=== PATIENT | male | born 1955 | race Caucasian/White ===

== ENCOUNTER 2021-05-08 10:24 | Outpatient (REF) | payer MEDICARE, SELFPAY ==
[2021-05-08 10:32] LABS: MANUAL DIFF FLAG NO
[2021-05-08 11:06] LABS: Basophils Percent Auto 0.3 % (0-2); Eosinophils Absolute Auto 0.1 X10*3/uL (0.0-0.4); Eosinophils Percent Auto 3.4 % (0-4); Hematocrit 39.2 % (42.0-52.0); Hemoglobin 12.6 g/dl (14.0-18.0); Lymphocytes Absolute Auto 1.2 X10*3/uL (1.2-4.9); Lymphocytes Percent Auto 36.3 % (20-40); Mean Corpuscular HGB Conc 32.1 g/dl (31.0-36.0); Mean Corpuscular Hemoglobin 28.8 pg (27.0-33.0); Mean Corpuscular Volume 89.5 fL (80.0-98.0); Mean Platelet Volume 10.7 fL (9.4-12.4); Monocytes Absolute Auto 0.5 X10*3/uL (0.1-1.2); Monocytes Percent Auto 15.1 % (2-11); Neutrophils Absolute Auto 1.5 x10*3/uL (2.0-8.3); Neutrophils Percent Auto 44.9 % (45-73); Platelet Count 244 X10*3/uL (160-400); Red Blood Count 4.38 X10*6/uL (4.60-5.80); Red Cell Distribution Width 14.1 % (11.0-16.0); White Blood Count 3.3 X10*3/uL (4.8-10.8)
[2021-05-08 11:16] LABS: Appearance Urine CLEAR; Color Urine YELLOW; Glucose Urine UA NEG (NEG); Leukocyte Esterase Urine NEG (NEG); Nitrite Urine NEG (NEG); PH 5.5 (5.0-8.0); Specific Gravity - Urine 1.025 (1.005-1.025); Urine Blood NEG (NEG); Urine Ketones NEG (NEG); Urine Protein NEG (NEG-TRACE)
[2021-05-08 11:35] LABS: Estimated Average Glucose 105 mg/dL; Hemoglobin A1c % 5.3 %
[2021-05-08 12:20] LABS: Alanine Aminotransferase 18 U/L (0-40); Albumin Level 3.8 g/dL (3.5-5.0); Alkaline Phosphatase 60 U/L (39-117); Anion Gap 14 (12-20); Aspartate Amino Transferase 24 U/L (5-37); Bilirubin Total 2.2 mg/dL (0.0-1.0); Blood Urea Nitrogen 21 mg/dL (9-16); Calcium 9.3 mg/dL (8.4-10.2); Carbon Dioxide 28 mmol/L (22-29); Chloride 103 mmol/L (96-108); Cholesterol 178 mg/dL; Estimated Glomerular Filt Rate > 60; Glucose Fasting 91 mg/dL (60-99); HDL Cholesterol 56 mg/dL; LDL Cholesterol Calculated 105 mg/dl; Potassium 3.7 mmol/L (3.3-5.1); Sodium 141 mmol/L (135-145); Total Protein 6.7 g/dL (6.5-8.0); Triglycerides 88 mg/dL
[2021-05-08 12:26] LABS: PSA,Total (Free>4and<10) 3.89 ng/mL (0.00-4.00)
[2021-05-08 12:29] LABS: Creatinine Urine 148.79 mg/dL; Microalbum/Creatinine Ratio Ur 14.1 ug/mg cr
== END 2021-05-08 10:25 | disposition home or self-care (01) ==
LOC: HO.LNP 10:24
PROVIDERS: Referring Provider Internal Medicine; Visit Provider Internal Medicine
DX: Z00.00 Encounter for general adult medical examination without abnormal findings (principal); Z12.5 Encounter for screening for malignant neoplasm of prostate; R73.03 Prediabetes; E80.4 Gilbert syndrome; D72.819 Decreased white blood cell count, unspecified; N40.0 Benign prostatic hyperplasia without lower urinary tract symptoms
CPT/HCPCS: 80053; 80061; 81003; 82043; 83036; 84153; 85025

== ENCOUNTER 2021-05-15 10:33 | Outpatient (REF) | payer MEDICARE, SELFPAY ==
[2021-05-15 10:36] LABS: MANUAL DIFF FLAG NO
[2021-05-15 10:42] LABS: Basophils Percent Auto 0.6 % (0-2); Eosinophils Absolute Auto 0.1 X10*3/uL (0.0-0.4); Eosinophils Percent Auto 2.4 % (0-4); Hematocrit 39.7 % (42.0-52.0); Hemoglobin 12.6 g/dl (14.0-18.0); Imm Gran Abs Auto 0.01 X10*3/uL (0.00-0.03); Imm Gran Pct Auto 0.3 % (0.0-0.4); Lymphocytes Absolute Auto 1.3 X10*3/uL (1.2-4.9); Lymphocytes Percent Auto 37.7 % (20-40); Mean Corpuscular HGB Conc 31.7 g/dl (31.0-36.0); Mean Corpuscular Hemoglobin 28.7 pg (27.0-33.0); Mean Corpuscular Volume 90.4 fL (80.0-98.0); Mean Platelet Volume 10.8 fL (9.4-12.4); Monocytes Absolute Auto 0.5 X10*3/uL (0.1-1.2); Monocytes Percent Auto 14.4 % (2-11); Neutrophils Absolute Auto 1.5 x10*3/uL (2.0-8.3); Neutrophils Percent Auto 44.6 % (45-73); Platelet Count 245 X10*3/uL (160-400); Red Blood Count 4.39 X10*6/uL (4.60-5.80); Red Cell Distribution Width 14.3 % (11.0-16.0); White Blood Count 3.3 X10*3/uL (4.8-10.8)
== END 2021-05-15 10:34 | disposition home or self-care (01) ==
LOC: HO.LNP 10:33
PROVIDERS: PCP Internal Medicine; Visit Provider Internal Medicine
DX: D70.9 Neutropenia, unspecified (principal)
CPT/HCPCS: 85025

== ENCOUNTER 2021-06-12 10:27 | Outpatient (REF) | payer MEDICARE, SELFPAY ==
[2021-06-12 10:30] LABS: MANUAL DIFF FLAG NO
[2021-06-12 10:57] LABS: Basophils Percent Auto 0.3 % (0-2); Eosinophils Absolute Auto 0.1 X10*3/uL (0.0-0.4); Eosinophils Percent Auto 2.8 % (0-4); Hematocrit 39.1 % (42.0-52.0); Hemoglobin 12.6 g/dl (14.0-18.0); Imm Gran Abs Auto 0.01 X10*3/uL (0.00-0.03); Imm Gran Pct Auto 0.3 % (0.0-0.4); Lymphocytes Absolute Auto 1.4 X10*3/uL (1.2-4.9); Lymphocytes Percent Auto 37.7 % (20-40); Mean Corpuscular HGB Conc 32.2 g/dl (31.0-36.0); Mean Corpuscular Volume 90.1 fL (80.0-98.0); Mean Platelet Volume 10.5 fL (9.4-12.4); Monocytes Absolute Auto 0.6 X10*3/uL (0.1-1.2); Neutrophils Absolute Auto 1.5 x10*3/uL (2.0-8.3); Neutrophils Percent Auto 41.9 % (45-73); Platelet Count 237 X10*3/uL (160-400); Red Blood Count 4.34 X10*6/uL (4.60-5.80); Red Cell Distribution Width 14.1 % (11.0-16.0); White Blood Count 3.6 X10*3/uL (4.8-10.8)
== END 2021-06-12 10:28 | disposition home or self-care (01) ==
LOC: HO.LNP 10:27
PROVIDERS: Visit Provider Internal Medicine
DX: D70.9 Neutropenia, unspecified (principal)
CPT/HCPCS: 85025

== ENCOUNTER 2021-11-06 10:41 | Outpatient (REF) | payer MEDICARE, SELFPAY ==
[2021-11-06 12:06] LABS: PSA,Total (Free>4and<10) 3.64 ng/mL (0.00-4.00)
== END 2021-11-06 10:42 | disposition home or self-care (01) ==
LOC: HO.LNP 10:41
PROVIDERS: Visit Provider Internal Medicine
DX: Z12.5 Encounter for screening for malignant neoplasm of prostate (principal); N40.0 Benign prostatic hyperplasia without lower urinary tract symptoms
CPT/HCPCS: 84153

== ENCOUNTER 2022-05-14 10:44 | Outpatient (REF) | payer MEDICARE, SELFPAY ==
[2022-05-14 10:51] LABS: MANUAL DIFF FLAG NO
[2022-05-14 11:10] LABS: Basophils Percent Auto 0.5 % (0-2); Eosinophils Absolute Auto 0.1 X10*3/uL (0.0-0.4); Eosinophils Percent Auto 3.3 % (0-4); Hematocrit 36.4 % (42.0-52.0); Hemoglobin 11.7 g/dl (14.0-18.0); Imm Gran Abs Auto 0.01 X10*3/uL (0.00-0.03); Imm Gran Pct Auto 0.3 % (0.0-0.4); Lymphocytes Absolute Auto 1.7 X10*3/uL (1.2-4.9); Lymphocytes Percent Auto 42.6 % (20-40); Mean Corpuscular HGB Conc 32.1 g/dl (31.0-36.0); Mean Corpuscular Hemoglobin 28.4 pg (27.0-33.0); Mean Corpuscular Volume 88.3 fL (80.0-98.0); Mean Platelet Volume 10.6 fL (9.4-12.4); Monocytes Absolute Auto 0.5 X10*3/uL (0.1-1.2); Monocytes Percent Auto 11.5 % (2-11); Neutrophils Absolute Auto 1.6 x10*3/uL (2.0-8.3); Neutrophils Percent Auto 41.8 % (45-73); Platelet Count 242 X10*3/uL (160-400); Red Blood Count 4.12 X10*6/uL (4.60-5.80); Red Cell Distribution Width 13.9 % (11.0-16.0); White Blood Count 3.9 X10*3/uL (4.8-10.8)
[2022-05-14 11:12] LABS: Appearance Urine Clear; Color Urine Yellow; Glucose Urine UA Negative (Negative); Leukocyte Esterase Urine Negative (Negative); Nitrite Urine Negative (Negative); PH 5.5 (5.0-9.0); Urine Blood Negative (Negative); Urine Ketones Negative (Negative); Urine Protein Negative (Neg-Trace)
[2022-05-14 11:27] LABS: Estimated Average Glucose 114 mg/dL; Hemoglobin A1c % 5.6 %
[2022-05-14 11:57] LABS: Alanine Aminotransferase 18 U/L (0-40); Albumin Level 3.9 g/dL (3.5-5.0); Alkaline Phosphatase 57 U/L (39-117); Anion Gap 13 (12-20); Aspartate Amino Transferase 25 U/L (5-37); Bilirubin Total 2.5 mg/dL (0.0-1.0); Blood Urea Nitrogen 26 mg/dL (9-16); Calcium 9.4 mg/dL (8.4-10.2); Carbon Dioxide 30 mmol/L (22-29); Chloride 103 mmol/L (96-108); Cholesterol 174 mg/dL; Estimated Glomerular Filt Rate > 60; Glucose Fasting 91 mg/dL (60-99); HDL Cholesterol 55 mg/dL; LDL Cholesterol Calculated 108 mg/dl; PSA,Total (Free>4and<10) 4.48 ng/mL (0.00-4.00); Potassium 4.2 mmol/L (3.3-5.1); Sodium 142 mmol/L (135-145); Total Protein 6.6 g/dL (6.5-8.0); Triglycerides 58 mg/dL
[2022-05-14 12:03] LABS: Creatinine Urine 131.65 mg/dL; Microalbum/Creatinine Ratio Ur 12.9 ug/mg cr
[2022-05-16 09:49] LABS: Free Prostate Spec Ag 1.4 ng/mL; Percent Free Prostate Spec Ag 33 % (calc) (>25); Prostate Specific Ag Total 4.3 ng/mL (< OR = 4.0)
== END 2022-05-14 10:45 | disposition home or self-care (01) ==
LOC: HO.LNP 10:44
PROVIDERS: Visit Provider Internal Medicine
DX: Z00.00 Encounter for general adult medical examination without abnormal findings (principal); Z12.5 Encounter for screening for malignant neoplasm of prostate; R73.03 Prediabetes; D72.819 Decreased white blood cell count, unspecified; N40.0 Benign prostatic hyperplasia without lower urinary tract symptoms
CPT/HCPCS: 80053; 80061; 81003; 82043; 83036; 84153; 84154; 85025

== ENCOUNTER 2022-06-14 10:49 | Outpatient (REF) | payer MEDICARE, SELFPAY ==
[2022-06-14 10:52] LABS: MANUAL DIFF FLAG NO
[2022-06-14 11:33] LABS: Blood Urea Nitrogen 25 mg/dL (9-16); Estimated Glomerular Filt Rate > 60
[2022-06-14 14:06] LABS: Basophils Percent Auto 0.7 % (0-2); Eosinophils Absolute Auto 0.1 X10*3/uL (0.0-0.4); Eosinophils Percent Auto 1.4 % (0-4); Hematocrit 36.9 % (42.0-52.0); Hemoglobin 11.8 g/dl (14.0-18.0); Imm Gran Abs Auto 0.03 X10*3/uL (0.00-0.03); Imm Gran Pct Auto 0.7 % (0.0-0.4); Lymphocytes Absolute Auto 1.5 X10*3/uL (1.2-4.9); Lymphocytes Percent Auto 34.8 % (20-40); Mean Corpuscular Hemoglobin 28.8 pg (27.0-33.0); Mean Platelet Volume 10.6 fL (9.4-12.4); Monocytes Absolute Auto 0.5 X10*3/uL (0.1-1.2); Monocytes Percent Auto 11.4 % (2-11); Neutrophils Absolute Auto 2.2 x10*3/uL (2.0-8.3); Platelet Count 244 X10*3/uL (160-400); Red Cell Distribution Width 14.4 % (11.0-16.0); White Blood Count 4.4 X10*3/uL (4.8-10.8)
== END 2022-06-14 10:50 | disposition home or self-care (01) ==
LOC: HO.LNP 10:49
PROVIDERS: Visit Provider Internal Medicine
DX: D72.820 Lymphocytosis (symptomatic) (principal); R79.9 Abnormal finding of blood chemistry, unspecified
CPT/HCPCS: 82565; 84520; 85025

== ENCOUNTER 2022-11-30 10:21 | Outpatient (REF) | payer MEDICARE, SELFPAY ==
[2022-11-30 10:46] LABS: Blood Urea Nitrogen 21 mg/dL (9-16); Estimated Glomerular Filt Rate > 60
== END 2022-11-30 10:22 | disposition home or self-care (01) ==
LOC: HO.LNP 10:21
PROVIDERS: PCP Internal Medicine; Visit Provider Internal Medicine
DX: R79.9 Abnormal finding of blood chemistry, unspecified (principal)
CPT/HCPCS: 82565; 84520

== ENCOUNTER 2023-04-09 09:14 | Emergency (ER) | payer MEDICARE, SELFPAY ==
--- NOTE | ~2023-04-09 | XR_ITS ---
EXAMINATION: XR CHEST CLINICAL INFORMATION: Cough. COMPARISON: None available. TECHNIQUE: 2 views of the chest were obtained. FINDINGS: The lungs are well-expanded and clear of acute process. The heart size and pulmonary vascularity is normal. There is mild dextroscoliosis mid dorsal spine. No aggressive lytic or sclerotic process seen. XR/XR chest 2V IMPRESSION: Unremarkable chest examination.
[2023-04-09 09:38] VITALS: BP 138/83; PULSE 64; RESP 20; TEMP 36.4; O2SAT 97; BMI 24.8
--- NOTE | 2023-04-09 09:46 | ECG_ITS ---
Test Reason : syncope Blood Pressure : / mmHG Vent. Rate : 062 BPM Atrial Rate : 062 BPM P-R Int : 168 ms QRS Dur : 100 ms QT Int : 450 ms P-R-T Axes : 072 064 038 degrees QTc Int : 456 ms Normal sinus rhythm Possible Left atrial enlargement Borderline ECG No previous ECGs available Referred By: Generic ED Physician Electronically Signed By:GREGORY ARRIAZA
--- OUTSIDE RECORDS SUMMARY | 2023-04-09 10:00 | XMS_ITS | Patient Health Record ---
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 Name Role Phone You Kelley Primary Care Provider ALLERGIES Allergen (clinical drug ingredient) Drug/Non Drug Allergy documented on EMR Reaction Allergy Type Onset Date Status tadalafil Cialis bone pain Drug Allergy Active RESULTS Component Value Reference Range Notes Hemoglobin A1c Reviewed date:12/13/2022 09:10:47 AM Interpretation: Performing Lab: Notes/Report: Value Hemoglobin A1c 5.5 PSA Free and Total Reviewed date:05/21/2022 10:15:19 AM Interpretation: Performing Lab:[facility], [address] [place] [phone] Notes/Report: Prostate Specific Ag Total 4.3 < OR = 4.0 ng/ mL Percent Free Prostate Spec Ag 33 >25 % (calc ) PSA(ng/mL) Free PSA(%) Estimated(x) Probability of Cancer(as%) 0-2.5 (*) Approx. 1 2.6-4.0(1) 0-27(2) 24(3) 4.1-10(4) 0-10 56 11-15 28 16-20 20 21-25 16 >or =26 8 >10(+) N/A >50 References:(1)Monica et al.:Urology 60: 469-474 (2002) (2)Monica et al.:J.Urol 168: 922-925 (2001) Free PSA(%) Sensitivity(%) Specificity(%) < or = 25 85 19 < or = 30 93 9 (3)Catalona et al.:GRECIA 277: 9951-7000 (1996) (4)Catalona et al.:GRECIA 279: 1991-1919 (1997) (x)These estimates vary with age, ethnicity, family history and SANDRO results. (*)The diagnostic usefulness of % Free PSA has not been established in patients with total PSA below 2.6 ng/mL (+)In men with PSA above 10 ng/mL, prostate cancer risk is determined by total PSA alone. The Total PSA value from this assay system is standardized against the equimolar PSA standard. The test result will be approximately 20% higher when compared to the WHO-standardized Total PSA (Siemens assay). Comparison of serial PSA results should be interpreted with this fact in mind. PSA was performed using the Gerber Madhu Immunoassay method. Values obtained from different assay methods cannot be used interchangeably. PSA levels, regardless of value, should not be interpreted as absolute evidence of the presence or absence of disease. THIS TEST WAS PERFORMED AT: [facility] [address] ([facility]) [place] [address] LUPILLO RHODES MD Free Prostate Spec Ag 1.4 UA CC w/rflx Micro + Cult Reviewed date:05/14/2022 03:35:10 PM Interpretation: Performing Lab:[address] [phone] Notes/Report: Urine, Clean Catch Color Urine Yellow Appearance Urine Clear PH 5.5 5.0-9.0 Glucose Urine UA Negative Negative mg/dL Urine Blood Negative Negative Specific [place] - Urine 1.020 1.005-1.025 Urine Protein Negative Neg-Trace mg/dL Urine Ketones Negative Negative mg/dL Nitrite Urine Negative Negative Leukocyte Esterase Urine Negative Negative Complete Blood Count Auto Di ff Reviewed date:05/14/2022 12:19:27 PM Interpretation: Performing Lab:[address] [phone] Notes/Report: White Blood Count 3.9 4.8-10.8 X10*3/uL Red Blood Count 4.12 4.60-5.80 X10*6/uL Hemoglobin 11.7 14.0-18.0 g/dl Hematocrit 36.4 42.0-52.0 % Mean Corpuscular Volume 88.3 80.0-98.0 fL Mean Corpuscular Hemoglobin 28.4 27.0-33.0 pg Mean Corpuscular HGB Conc 32.1 31.0-36.0 g/dl Red Cell Distribution Width 13.9 11.0-16.0 % Platelet Count 242 160-400 X10*3/uL Mean Platelet Volume 10.6 9.4-12.4 fL Neutrophils Percent Auto 41.8 45-73 % Imm Gran Pct Auto 0.3 0.0-0.4 % Lymphocytes Percent Auto 42.6 20-40 % Monocytes Percent Auto 11.5 2-11 % Eosinophils Percent Auto 3.3 0-4 % Basophils Percent Auto 0.5 0-2 % NRBC Pct Auto 0.0 0.0-0.2 /100WBC Neutrophils Absolute Auto 1.6 2.0-8.3 x10*3/u L Imm Gran Abs Auto 0.01 0.00-0.03 X10*3/uL Lymphocytes Absolute Auto 1.7 1.2-4.9 X10*3/u L Monocytes Absolute Auto 0.5 0.1-1.2 X10*3/uL Eosinophils Absolute Auto 0.1 0.0-0.4 X10*3/u L Basophils Absolute Auto 0.0 0.0-0.2 X10*3/uL NRBC Abs Auto 0.000 0.0-0.012 X10*3/uL Comprehensive [place]. Panel Fa st Reviewed date:05/14/2022 12:17:30 PM Interpretation: Performing Lab:[facility], [address] [place] [phone] Notes/Report: Sodium 142 135-145 mmol/L Potassium 4.2 3.3-5.1 mmol/L Chloride 103 96-108 mmol/L Carbon Dioxide 30 22-29 mmol/L Anion Gap 13 12-20 Blood Urea Nitrogen 26 9-16 mg/dL Creatinine 1.06 0.5-1.4 mg/dL Estimated Glomerular Filt Rate > 60 NOTE: For -[place] individuals, multiply the result by 1.210. Chronic Kidney Disease: Estimated GFR < 60 mL/min/1.73m2 Severe Kidney Disease: Estimated GFR < 15 mL/min/1.73m2 Glucose Fasting 91 60-99 mg/dL Calcium 9.4 8.4-10.2 mg/dL Bilirubin Total 2.5 0.0-1.0 mg/dL Aspartate Amino Transferase 25 5-37 U/L Alanine Aminotransferase 18 0-40 U/L Total Protein 6.6 6.5-8.0 g/dL Albumin Level 3.9 3.5-5.0 g/dL Alkaline Phosphatase 57 39-117 U/L Lipid Panel Reviewed date:05/14/2022 12:19:52 PM Interpretation: Performing Lab:[address] [phone] Notes/Report: Triglycerides 58 Desirable Triglyceride: less than 150 mg/dL Borderline High Triglyceride 150-199 mg/dL High Triglyceride: 200-499 mg/dL Very High Triglyceride: greater than or equal to 5OO mg/dL Cholesterol 174 Desirable Cholesterol: less than 200 mg/dL Borderline High Cholesterol: 200-239 mg/dL High Cholesterol: greater than 239 mg/dL LDL Cholesterol Calculated 108 Desirable LDL: less than 100 mg/dL Near Optimal/Above Optimal LDL: 110-129 mg/dL Borderline High LDL: 130-159 mg/dL High LDL: 160-189 mg/dL Very High LDL: greater than or equal to 190 mg/dL HDL Cholesterol 55 Desirable HDL: greater than 40 mg/dL Note: This HDL assay may give artificially low results in patients with liver disease. PSA,Total (Free>4and<10) Reviewed date:05/18/2022 12:39:11 PM Interpretation:TAVO 05/18/22 Performing Lab:[address] [phone] Notes/Report: PSA,Total (Free>4and<10) 4.48 0.00-4.00 ng/mL PSA methodology: Singh Chemistry Lecturer Chemiluminescent Microparticle Immunoassay Microalbumin, Random Reviewed date:05/14/2022 12:18:32 PM Interpretation: Performing Lab:[address] [place] [address] Notes/Report: Creatinine Urine 131.65 Microalbumin Urine 17.0 Microalbum/Creatinine Ratio Ur 12.9 Albumin/Creatinine Ratio Reference Ranges: Normal: < 30 ug/mg creatinine Microalbuminuria: 30 - 300 ug/mg creatinine Clinical Albuminuria: > 300 ug/mg creatinine Hemoglobin A1c Reviewed date:05/14/2022 12:17:38 PM Interpretation: Performing Lab:[facility], [address] [place] [phone] Notes/Report: Hemoglobin A1c % 5.6 Hemoglobin A1C Reference Range Adults: 4.8 - 6.0 % Non diabetic: < 6.0 % Goal: < 7.0 % Additional Action Suggested: > 8.0 % Note: Hemoglobin A1c results are invalid for patients with abnormal amounts of HbF. Blood transfusions may impact the HbA1c concentration in the patient sample. Estimated Average Glucose 114 eAG = Estimated average glucose which is %A1C expressed as average glucose, using the formula of the Y7A-Modyfks Average Glucose study (ADAG), Diabetes Care, Vol.31,#8, Nov. 2007 Occult Blood, Stool, Guaiac Reviewed date:05/18/2022 09:43:13 AM Interpretation:Negative Performing Lab: Notes/Report: Negative Occult Blood, Stool, Guaiac Neg Complete Blood Count Auto Di ff Reviewed date:06/15/2022 04:13:35 PM Interpretation: Performing Lab:[facility], [address] [place] [phone] Notes/Report: White Blood Count 4.4 4.8-10.8 X10*3/uL Red Blood Count 4.10 4.60-5.80 X10*6/uL Hemoglobin 11.8 14.0-18.0 g/dl Hematocrit 36.9 42.0-52.0 % Mean Corpuscular Volume 90.0 80.0-98.0 fL Mean Corpuscular Hemoglobin 28.8 27.0-33.0 pg Mean Corpuscular HGB Conc 32.0 31.0-36.0 g/dl Red Cell Distribution Width 14.4 11.0-16.0 % Platelet Count 244 160-400 X10*3/uL Mean Platelet Volume 10.6 9.4-12.4 fL Neutrophils Percent Auto 51.0 45-73 % Imm Gran Pct Auto 0.7 0.0-0.4 % Lymphocytes Percent Auto 34.8 20-40 % Monocytes Percent Auto 11.4 2-11 % Eosinophils Percent Auto 1.4 0-4 % Basophils Percent Auto 0.7 0-2 % NRBC Pct Auto 0.0 0.0-0.2 /100WBC Neutrophils Absolute Auto 2.2 2.0-8.3 x10*3/u L Imm Gran Abs Auto 0.03 0.00-0.03 X10*3/uL Lymphocytes Absolute Auto 1.5 1.2-4.9 X10*3/u L Monocytes Absolute Auto 0.5 0.1-1.2 X10*3/uL Eosinophils Absolute Auto 0.1 0.0-0.4 X10*3/u L Basophils Absolute Auto 0.0 0.0-0.2 X10*3/uL NRBC Abs Auto 0.000 0.0-0.012 X10*3/uL Blood Urea Nitrogen Reviewed date:06/14/2022 12:35:14 PM Interpretation: Performing Lab:[facility], [address] [place] [phone] Notes/Report: Blood Urea Nitrogen 25 9-16 mg/dL Creatinine Reviewed date:06/14/2022 12:34:14 PM Interpretation: Performing Lab:[address] [phone] Notes/Report: Creatinine 0.93 0.5-1.4 mg/dL Estimated Glomerular Filt Rate > 60 NOTE: For -[place] individuals, multiply the result by 1.210. Chronic Kidney Disease: Estimated GFR < 60 mL/min/1.73m2 Severe Kidney Disease: Estimated GFR < 15 mL/min/1.73m2 Blood Urea Nitrogen Reviewed date:11/30/2022 12:19:00 PM Interpretation: Performing Lab:[address] [phone] Notes/Report: Blood Urea Nitrogen 21 9-16 mg/dL Creatinine Reviewed date:11/30/2022 12:18:53 PM Interpretation: Performing Lab:[facility], [address] [place] [phone] Notes/Report: Creatinine 0.97 0.5-1.4 mg/dL Estimated Glomerular Filt Rate > 60 NOTE: For -[place] individuals, multiply the result by 1.210. Chronic Kidney Disease: Estimated GFR < 60 mL/min/1.73m2 Severe Kidney Disease: Estimated GFR < 15 mL/min/1.73m2 Glucose, finger stick Reviewed date:12/13/2022 09:05:21 AM Interpretation: Performing Lab: Notes/Report: Value 120 REASON FOR REFERRAL Reason elevated PSA Diagnosis 1 Elevated PSA (R97.20 ) Referral Organization You Kelley MD Referring Provider First Name You Referring Provider Last Name Warrne Referring Provider Speciality Internal M edicine Referred Provider Ugo Maradiaga Referred Provider Specialty Urology General Notes Nani Love 09:46:50 AM EST > info faxed, Nani Love 05/29/2022 01:29:21 PM EST > info mailed to patient Referral Priority Routine Referral Appointment Date 06/11/2022 MEDICATIONS Medication SIG (Take, Route, Frequency, Duration) Notes Start Date End Date Status Viagra 100 MG 1/2 tablet as needed Orally Once a day for 30 days Active Finasteride 5 MG 1 tablet Orally Once a day Active Tadalafil 20 MG 1/2 to one tablet Orally Once a day for 30 day(s) 02/20/2019 Not-Taking Amoxicillin-Pot Clavulanate 875-125 MG 1 tablet Orally every 12 hrs for 10 days 04/01/2023 Active IMMUNIZATIONS Vaccine Route Administration Date Status Comme nts Flu Vaccine IM Intramuscular 01/30/2011 Administered Flu Vaccine Unknown 04/12/2012 Administered Flu Vaccine IM Intramuscular 04/21/2013 Administered zFluzone Quadrivalent IM Intramuscular 02/24/2015 Administered pt recieved the flu vaccine at [facility] in [place]. Fluarix Quadrivalent IM Intramuscular 01/09/2016 Administe red Fluarix Quadrivalent IM Intramuscular 02/05/2017 Administe red Fluarix Quadrivalent IM Intramuscular 02/15/2020 Administe red PPSV23 (Pnemovax) IM Intramuscular 03/08/2020 Administered SARS-COV-2 Pfizer Unknown 07/21/2020 Administered SARS-COV-2 Pfizer Unknown 08/11/2020 Administered SARS-COV-2 Pfizer Unknown 04/02/2021 Administered Fluarix Quadrivalent Unknown 04/02/2021 Administered PPSV23 (Pnemovax) Unknown 01/10/2016 Refused PPSV23 (Pnemovax) Unknown 02/08/2017 Refused Prevnar 13 Unknown 02/08/2017 Refused Fluarix Quadrivalent Unknown 02/10/2018 Refused Fluarix Quadrivalent Unknown 02/17/2019 Refused SOCIAL HISTORY Tobacco Use: Social History Observation Description Date Details (start date - stop date) Never Smoker NA - NA Sex Assigned At : Social History Observation Description Sex Assigned At Unknown Tobacco Use/Smoking Question Answer Notes Patient is a nonsmoker Additional Findings: Tobacco Non-User Cu rrent non-smoker, currently using no form of tobacco Alcohol Screen Question Answer Notes Did you have a drink contain ing alcohol in the past year? Yes How often did you have a dri nk containing alcohol in the past year? Monthly or less (1 point) How many drinks did you have on a typical day when you were drinking in the past year? 1 or 2 drinks (0 point) How often did you have 6 or more drinks on one occasion in the past year? 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) Active confirmed 39058115 Problem Family history of colon cancer (Z80.0) Active confirmed 199573060 Problem Leukopenia, unspecified type (D72.819) Active confirmed 37207195 VITAL SIGNS Blood pressure diastolic 84 mm Hg 09/03/2022 petra ght is down 3 pounds since 05-18-22 Height 71 in 04/01/2023 weight at home is 178 BP not taken at home no temp Blood pressure systolic 158 mm Hg 09/03/2022 weig ht is down 3 pounds since 05-18-22 Weight 178 lbs 04/01/2023 weight at home is 178 BP not taken at home no temp BMI 24.82 kg/m2 04/01/2023 weight at home is 178 BP not taken at home no temp Encounters Encounter Location Date Provider Diagnosis You Kelley MD [address] [place] [id number] 05/18/2022 You Kelley Elevated PSA R97.20 ; Adult general medical exam Z00.00 ; Elevated BUN R79.9 ; Prostatism N40.0 ; Lymphocytosis D72.820 ; Colon cancer screening Z12.11 ; Depression screen Z13.31 and Prediabetes R73.09 You Kelley MD [address] [place] [id number] 05/14/2022 You Kelley Blood tests for routine general physical examination Z00.00 ; Prediabetes R73.09 ; Leukopenia, unspecified type D72.819 and Prostatism N40.0 You Kelley MD [address] [place] [id number] 06/14/2022 You Kelley Lymphocytosis D72.82 0 and Elevated BUN R79.9 You Kelley MD [address] [place] [id number] 11/30/2022 You Kelley Elevated BUN R79.9 You Kelley MD [address] [place] [id number] 09/03/2022 You Kelley Labile hypertension R09.89 ; Prostatism N40.0 and Elevated BUN R79.9 You Kelley MD [address] [place] [id number] 12/13/2022 You Kelley Prediabetes R73.09 and Prostatism N40.0 You Kelley MD [address] [place] [id number] 11/09/2022 You Kelley MD [address] [place] [id number] 04/01/2023 You Kelley Acute non-recurrent maxillary sinusitis J01.00 You Kelley MD [address] [place] [id number] 01/26/2023 You Kelley ASSESSMENTS Encounter Date Diagnosis Assessment Notes Treatment Notes Treatment Clinical Notes 05/18/2022 Elevated PSA (ICD-10 - R97.20) referral to urology. send the last 3 years of psa's 05/18/2022 Adult general medical exam (ICD-10 - Z00.00) labs reviewed and discussed with patient 05/14/2022 Prediabetes (ICD-10 - R73.09) 05/14/2022 Blood tests for routine general physical examination (ICD-10 - Z00.00) 06/14/2022 Lymphocytosis (ICD-10 - D72.820) 06/14/2022 Elevated BUN (ICD-10 - R79.9) 11/30/2022 Elevated BUN (ICD-10 - R79.9) 09/03/2022 Prostatism (ICD-10 - N40.0) has started finasteride, will continue curent regiment 09/03/2022 Labile hypertension (ICD-10 - R09.89) usually with great readings 12/13/2022 Prostatism (ICD-10 - N40.0) has been on finasteride. some nights has trouble getting / has been off tamzulosin for 3 weeks with no change 12/13/2022 Prediabetes (ICD-10 - R73.09) stable, no need for medication at ths time 04/01/2023 Acute non-recurrent maxillary sinusitis (ICD-10 - J01.00) Patient/Caregiver verbalizes understanding of medications side effects, interactions and warnings. 05/18/2022 Elevated BUN (ICD-10 - R79.9) 05/14/2022 Leukopenia, unspecified type (ICD-10 - D72.819) 09/03/2022 Elevated BUN (ICD-10 - R79.9) pending labs, will continue to monitor 05/18/2022 Prostatism (ICD-10 - N40.0) patient verbalized understanding of change in medication 05/14/2022 Prostatism (ICD-10 - N40.0) 05/18/2022 Lymphocytosis (ICD-10 - D72.820) 05/18/2022 Colon cancer screening (ICD-10 - Z12.11) guaiac negative 05/18/2022 Depression screen (ICD-10 - Z13.31) negative screen 05/18/2022 Prediabetes (ICD-10 - R73.09) stable, no need for medication at this time PLAN OF TREATMENT Pending Test Test Name Order Date Electrocardiogram (EKG) 03/06/2011 Electrocardiogram (EKG) 07/12/2014 Next Appt Details Provider Name:You Zambrano ier, 05/14/2023 07:00:00 AM, [address] [place] [address], [address], [place], [place], [id number], Provider Name:You Zambrano ier, 05/23/2023 09:30:00 AM, [address] [facility], [address], [place], [place], [phone], Insurance Providers Payer Name Payer Address Payer Phone Subscriber Number Group Number Insured Name Patient Relationship to Insured Coverage Start Date Coverage End Date [facility] are [employer] [address] [address] [place] [address] [phone] [id number] Denny Brito Self - patient is the insured MEDICARE [address] [place] [address] [id number] Denny Brito Self - patient is the insured MEDICAL (GENERAL) HISTORY Medical History History ICD Code cat scan colonoscopy 2006 colonoscopy 05/26/12 - repeat in 5 years; colonoscopy done 09/01/[address] Alfaro - repeat 5 years
[2023-04-09 10:10] VITALS: BP 130/73; PULSE 61; RESP 19; TEMP 36.6; O2SAT 98
--- NOTE | 2023-04-09 10:23 | ED.GENADULT ---
HPI - General Adult General Chief complaint: Upper Respiratory Symptoms Stated complaint: Flu Symptoms Time Seen by Provider: 04/09/23 10:08 History of Present Illness HPI narrative: The patient is a 68-year-old male who is generally in good health. Says that for about a month he has had a bad cough. He says that the cough was not initially associated with a fever but was associated with exertional shortness of breath. Eight days ago he had a telehealth visit with his primary care doctor, Dr. Narayan Kelley. He was prescribed Augmentin as a consequence of that telehealth visit. He says that fairly soon after starting the Augmentin he started to have looser stools. Yesterday he had loose stools and he also developed a fever and chills. His highest temperature was something close to 100.5. This morning he started to feel lightheaded while urinating. He went to the kitchen and leaned over the sink thinking he might vomit. He then apparently passed out falling backwards. His says that he fell against the stove. She says that he hit his back and the back of his head against the stove but did not seem to hit very hard. He then was sitting against the stove when he came to fairly quickly. He then went to the bathroom and started vomiting. His apparently called 911 during this time but when paramedics arrived he told them that he was feeling better and agreed to have his drive him to the emergency room. He has no headache. No neck pain. He does not really feel that his cough has gotten significantly better since starting the Augmentin. No abdominal pain. Related Data Previous Rx's Medication Instructions Recorded albuterol sulfate 90 mcg/actuation 2 puff inhalation Q4-6H PRN cough 04/09/23 aerosol inhaler #8.5 grams vancomycin 125 mg capsule 125 mg PO QID 10 days #40 caps 04/09/23 (Vancocin) Allergies Allergy/AdvReac Type Severity Reaction Status Date / Time No Known Allergies Allergy Verified 04/09/23 09:45 Review of Systems Review of Systems: Yes all other systems are reviewed and are negative [facility] Social History Social History Smoked in Last 30 Days: No Use of substances other than those prescribed or required for medical reasons: No Advance Directives: Yes Advance Directives Information Provided: Yes Advance Directives on File: No Physical Exam ED Vital Signs: Vital Signs - 24 hr 04/09/23 09:38 04/09/23 10:10 04/09/23 10:40 Temperature 97.5 F 97.9 F Pulse Rate 64 61 Respiratory Rate 20 19 Blood Pressure 138/83 130/73 Pulse Oximetry 97 98 98 Oxygen Delivery Method Room Air Room Air Room Air 04/09/23 12:16 04/09/23 12:25 Temperature Pulse Rate 85 Respiratory Rate 18 18 Blood Pressure Pulse Oximetry Oxygen Delivery Method BMI result Body Mass Index 24.8 Const Other: The patient looks as though he is ordinarily a vigorous and healthy slim 68-year-old. He looks mildly unwell but not acutely toxic. HENMT Other: Face is symmetrical. Mucous membranes moist. Eyes Other: Pupils are round equal, conjunctivae clear Neck Other: No JVD, no neck swelling Resp Other: Possibly some minimal wheezes. No increased work of breathing. No ambar crackles. Cardio Other: The patient had a regular rate and rhythm no murmur GI Other: Abdomen is soft and nontender Skin Other: The skin is dry and unremarkable Neuro Other: The patient is awake, alert, oriented, appropriate. Nontoxic. Grossly neurologically intact. Extrem Other: No peripheral edema. Medications Administered Discontinued Medications Generic Name Dose Route Start Last Admin Trade Name Freq PRN Reason Stop Dose Admin Albuterol Sulfate 2 puff 04/09/23 12:17 04/09/23 12:19 Albuterol Sulfate 90 Mcg 8 Gm Inhaler INHALE 04/09/23 12:18 2 puff ONCE ONE Administration Albuterol/Ipratropium 3 ml 04/09/23 12:08 04/09/23 12:15 Albuterol/Iprat 2.5/0.5mg 3 Ml Ampul.Neb INHALE 04/09/23 12:09 3 ml ONCE ONE Administration Sodium Chloride 1,000 mls @ 999 mls/hr 04/09/23 10:30 04/09/23 11:49 Ns IV 04/09/23 11:30 Infused .Q1H1M TEVIN Infusion Sodium Chloride 1,000 mls @ 999 mls/hr 04/09/23 11:45 04/09/23 12:54 Ns IV 04/09/23 12:45 Infused .Q1H1M TEVIN Infusion Vancomycin HCl 125 mg 04/09/23 13:28 04/09/23 13:51 Vancomycin Hcl 125 Mg Capsule PO 04/09/23 13:29 125 mg ONCE ONE Administration Medical Decision Making Medical Decision Making [facility] Narrative: Patient is a 68-year-old male who has had problems with a cough for about a month. He a has never been a smoker and has no history of chronic lung disease. Eight days ago he was prescribed Augmentin. His cough has not improved significantly but over the last 24 hours he has developed diarrhea and chills. His chest x-ray is negative. He has a mild white blood count elevation. CRP mildly elevated. Stool is positive for C diff. The patient is started on oral vancomycin for what seems to be a C diff infection. With regard to his cough I do not think there is an indication for another trial of antibiotics, particularly given his current C diff. a he was instructed in the use of an albuterol inhaler. He will use the albuterol inhaler to see if this helps with his coughing. He should take the oral vancomycin at home and stay in touch with regular doctor. He should return if worse. Lab Data 04/09/23 10:29 04/09/23 10:29 Labs: Lab Results 04/09/23 04/09/23 04/09/23 Range/Units 10:14 10:29 11:48 WBC 12.8 H (4.8-10.8) X10*3/uL RBC 4.57 L (4.60-5.80) X10*6/uL Hgb 12.7 L (14.0-18.0) g/dl Hct 38.7 L (42.0-52.0) % MCV 84.7 (80.0-98.0) fL MCH 27.8 (27.0-33.0) pg MCHC 32.8 (31.0-36.0) g/dl RDW 13.5 (11.0-16.0) % Plt Count 265 (160-400) X10*3/uL MPV 9.4 (9.4-12.4) fL Immature Gran % (Auto) 0.4 (0.0-0.4) % Neut % (Auto) 87.2 H (45-73) % Lymph % (Auto) 4.9 L (20-40) % Childress % (Auto) 7.1 (2-11) % Eos % (Auto) 0.2 (0-4) % Baso % (Auto) 0.2 (0-2) % Lymph # (Auto) 0.6 L (1.2-4.9) X10*3/uL Childress # (Auto) 0.9 (0.1-1.2) X10*3/uL Eos # (Auto) 0.0 (0.0-0.4) X10*3/uL Baso # (Auto) 0.0 (0.0-0.2) X10*3/uL Abs Immat Gran (auto) 0.05 H (0.00-0.03) X10*3/uL Absolute Neuts (auto) 11.1 H (2.0-8.3) x10*3/uL Absolute Nucleated RBC 0.000 (0.0-0.012) X10*3/uL Nucleated RBC % (auto) 0.0 (0.0-0.2) /100WBC Sodium 135 (135-145) mmol/L Potassium 4.3 (3.3-5.1) mmol/L Chloride 100 (96-108) mmol/L Carbon Dioxide 26 (22-29) mmol/L Anion Gap 13 (12-20) BUN 19 H (9-16) mg/dL Creatinine 1.03 (0.5-1.4) mg/dL Estim Creat Clear Calc 73.1 Estimated GFR > 60 Random Glucose 106 (60-115) mg/dL Calcium 9.1 (8.4-10.2) mg/dL Magnesium 1.9 (1.6-2.6) mg/dL Total Bilirubin 2.2 H (0.0-1.0) mg/dL Direct Bilirubin 0.5 (0.0-0.5) mg/dL AST 26 (5-37) U/L ALT 18 (0-40) U/L Alkaline Phosphatase 69 (39-117) U/L C-Reactive Protein 4.78 H (< or = 0.50) mg/dL B-Natriuretic Peptide 120 H (<100) pg/mL Total Protein 7.2 (6.5-8.0) g/dL Albumin 3.7 (3.5-5.0) g/dL Urine Color Yellow Urine Appearance Clear Urine pH 6.5 (5.0-9.0) Ur Specific Hardy 1.020 (1.005-1.025) Urine Protein Trace (Neg-Trace) mg/dL Urine Glucose (UA) Negative (Negative) mg/dL Urine Ketones Negative (Negative) mg/dL Urine Blood Negative (Negative) Urine Nitrite Negative (Negative) Ur Leukocyte Esterase Negative (Negative) C. difficile Tox B Gene POSITIVE A* (Negative) C. difficile Toxin A&B Positive A* (Negative) C. difficile Interpret SEE NOTE Influenza Type A (PCR) NEGATIVE (Negative) Influenza Type B (PCR) NEGATIVE (Negative) RSV RNA Qual (PCR) NEGATIVE (Negative) SARS-CoV-2 RNA (RT-PCR) NEGATIVE (Negative) Independent Interpretation I performed an independent interpretation of an: EKG Interpretation: EKG at 10:22 shows normal sinus rhythm at 62 beats per minute. No definite acute ischemic changes. Discharge Plan Discharge Clinical Impression: C. difficile diarrhea, Cough Patient Disposition: Home, Self-Care Instructions: C. Diff (Clostridioides Difficile) Infection (ED) Additional Instructions: Your stool sample tested positive for Clostridium difficile today. This can happen after taking antibiotics. You have been started on a course of an antibiotic which is effective against Clostridium difficile. This antibiotic is vancomycin. Please take this antibiotic 4 times a day (approximately every 6 hours) as prescribed for 10 days. Drink a lot of fluids. With regard to your coughing and respiratory symptoms I would recommend using albuterol 2 puffs every 4-6 hours to see if this is helpful. I would also take a lot of fluids and hot teas and broths. Honey may be helpful also. Please contact your regular doctor for a follow-up appointment in about a week. Return to the emergency was significantly worse. Prescriptions: New vancomycin [Vancocin] 125 mg capsule 125 mg PO QID 10 Days Qty: 40 0RF albuterol sulfate 90 mcg/actuation HFA aerosol inhaler 2 puff inhalation Q4-6H PRN (Reason: cough) Qty: 8.5 0RF Interventions: ED Discharge Assessment Last Done: 04/09/23 14:08 Discharge Date/Time: 04/09/23 14:08
[2023-04-09 10:32] LABS: MANUAL DIFF FLAG NO
[2023-04-09] MEDS: 0.9 % Sodium Chloride 1,000 ML 999 ML IV ×2 (10:32→11:52)
[2023-04-09 10:34] LABS: Basophils Percent Auto 0.2 % (0-2); Eosinophils Percent Auto 0.2 % (0-4); Hematocrit 38.7 % (42.0-52.0); Hemoglobin 12.7 g/dl (14.0-18.0); Imm Gran Abs Auto 0.05 X10*3/uL (0.00-0.03); Imm Gran Pct Auto 0.4 % (0.0-0.4); Lymphocytes Absolute Auto 0.6 X10*3/uL (1.2-4.9); Lymphocytes Percent Auto 4.9 % (20-40); Mean Corpuscular HGB Conc 32.8 g/dl (31.0-36.0); Mean Corpuscular Hemoglobin 27.8 pg (27.0-33.0); Mean Corpuscular Volume 84.7 fL (80.0-98.0); Mean Platelet Volume 9.4 fL (9.4-12.4); Monocytes Absolute Auto 0.9 X10*3/uL (0.1-1.2); Monocytes Percent Auto 7.1 % (2-11); Neutrophils Absolute Auto 11.1 x10*3/uL (2.0-8.3); Neutrophils Percent Auto 87.2 % (45-73); Platelet Count 265 X10*3/uL (160-400); Red Blood Count 4.57 X10*6/uL (4.60-5.80); Red Cell Distribution Width 13.5 % (11.0-16.0); White Blood Count 12.8 X10*3/uL (4.8-10.8)
[2023-04-09 10:40] VITALS: O2SAT 98
[2023-04-09 11:00] LABS: Alanine Aminotransferase 18 U/L (0-40); Albumin Level 3.7 g/dL (3.5-5.0); Alkaline Phosphatase 69 U/L (39-117); Anion Gap 13 (12-20); Aspartate Amino Transferase 26 U/L (5-37); B Type Natriuretic Peptide 120 pg/mL (<100); Bilirubin Direct 0.5 mg/dL (0.0-0.5); Bilirubin Total 2.2 mg/dL (0.0-1.0); Blood Urea Nitrogen 19 mg/dL (9-16); C Reactive Protein 4.78 mg/dL (< or = 0.50); Calcium 9.1 mg/dL (8.4-10.2); Carbon Dioxide 26 mmol/L (22-29); Chloride 100 mmol/L (96-108); Creatinine Clr Calc Pharmacy 73.1; Estimated Glomerular Filt Rate > 60; Glucose Random 106 mg/dL (60-115); Magnesium 1.9 mg/dL (1.6-2.6); Potassium 4.3 mmol/L (3.3-5.1); Sodium 135 mmol/L (135-145); Total Protein 7.2 g/dL (6.5-8.0)
[2023-04-09 11:05] LABS: Influenza A PCR NEGATIVE (Negative); Influenza B PCR NEGATIVE (Negative); Resp Syncy Virus RNA Qual PCR NEGATIVE (Negative); SARS COV2 PCR INHOUSE NEGATIVE (Negative)
[2023-04-09 11:17] VITALS: PULSE 61
[2023-04-09 11:59] LABS: Appearance Urine Clear; Color Urine Yellow; Glucose Urine UA Negative (Negative); Leukocyte Esterase Urine Negative (Negative); Nitrite Urine Negative (Negative); PH 6.5 (5.0-9.0); Urine Blood Negative (Negative); Urine Ketones Negative (Negative); Urine Protein Trace mg/dL (Neg-Trace)
[2023-04-09] MEDS: Albuterol/Iprat 2.5/0.5MG 3 ML AMPUL.NEB INHALE (12:15)
[2023-04-09 12:16] VITALS: PULSE 85; RESP 18; O2SAT 98
[2023-04-09] MEDS: Albuterol Sulfate 90 MCG 8 GM INHALER 2 PUFF INHALE (12:19)
[2023-04-09 12:25] VITALS: RESP 18; O2SAT 98
[2023-04-09 13:02] LABS: CDiff Gene PCR POSITIVE (Negative)
[2023-04-09 13:37] LABS: CDiff Toxin Positive (Negative)
[2023-04-09 13:39] LABS: CDIFF Internal ctrl Dots and bkg OK (V)
[2023-04-09] MEDS: vancomycin HCL 125 MG CAPSULE PO (13:51)
--- NOTE | 2023-04-09 13:52 | PC.NURSE ---
contact precautions in place. PO vanco given.
== END 2023-04-09 14:08 | disposition home or self-care (01) ==
PROVIDERS: Emergency Provider Emergency Medicine; PCP Internal Medicine
DX: A09 Infectious gastroenteritis and colitis, unspecified (principal); R05.9 Cough, unspecified; R06.02 Shortness of breath; R94.31 Abnormal electrocardiogram [ECG] [EKG]; R42 Dizziness and giddiness; R51.9 Headache, unspecified; M54.50 Low back pain, unspecified; Z20.822 Contact with and (suspected) exposure to COVID-19; Z20.828 Contact with and (suspected) exposure to other viral communicable diseases; Z79.899 Other long term (current) drug therapy
CPT/HCPCS: 0241U; 36415; 71046; 80048; 80076; 81003; 83735; 83880; 85025; 86140; 87324; 87493; 93005; 94640; 96360; 96361; 99284; 99285

== ENCOUNTER → 2023-04-09 09:46 | Outpatient (BNV) | payer MEDICARE, SELFPAY | PROVIDERS: Emergency Provider Emergency Medicine; PCP Internal Medicine; Visit Provider Internal Medicine | DX: R55 Syncope and collapse (principal) | CPT/HCPCS: 93010 ==

== ENCOUNTER 2023-05-14 10:57 | Outpatient (REF) | payer MEDICARE, SELFPAY ==
[2023-05-14 11:00] LABS: MANUAL DIFF FLAG NO
[2023-05-14 11:36] LABS: Basophils Percent Auto 0.6 % (0-2); Eosinophils Absolute Auto 0.1 X10*3/uL (0.0-0.4); Eosinophils Percent Auto 3.7 % (0-4); Hematocrit 38.3 % (42.0-52.0); Hemoglobin 12.1 g/dl (14.0-18.0); Imm Gran Abs Auto 0.01 X10*3/uL (0.00-0.03); Imm Gran Pct Auto 0.3 % (0.0-0.4); Lymphocytes Absolute Auto 1.1 X10*3/uL (1.2-4.9); Lymphocytes Percent Auto 32.6 % (20-40); Mean Corpuscular HGB Conc 31.6 g/dl (31.0-36.0); Mean Corpuscular Hemoglobin 27.6 pg (27.0-33.0); Mean Corpuscular Volume 87.4 fL (80.0-98.0); Mean Platelet Volume 10.9 fL (9.4-12.4); Monocytes Absolute Auto 0.4 X10*3/uL (0.1-1.2); Neutrophils Absolute Auto 1.8 x10*3/uL (2.0-8.3); Neutrophils Percent Auto 50.8 % (45-73); Platelet Count 265 X10*3/uL (160-400); Red Blood Count 4.38 X10*6/uL (4.60-5.80); Red Cell Distribution Width 14.7 % (11.0-16.0); White Blood Count 3.5 X10*3/uL (4.8-10.8)
[2023-05-14 11:45] LABS: Appearance Urine Clear; Color Urine Yellow; Glucose Urine UA Negative (Negative); Leukocyte Esterase Urine Negative (Negative); Nitrite Urine Negative (Negative); PH 5.5 (5.0-9.0); Specific Gravity - Urine 1.025 (1.005-1.025); Urine Blood Negative (Negative); Urine Ketones Negative (Negative); Urine Protein Negative (Neg-Trace)
[2023-05-14 11:47] LABS: Estimated Average Glucose 105 mg/dL; Hemoglobin A1c % 5.3 % (<6.0)
[2023-05-14 11:53] LABS: Alanine Aminotransferase 21 U/L (0-40); Albumin Level 3.7 g/dL (3.5-5.0); Alkaline Phosphatase 64 U/L (39-117); Anion Gap 8 (12-20); Aspartate Amino Transferase 27 U/L (5-37); Bilirubin Total 1.6 mg/dL (0.0-1.0); Blood Urea Nitrogen 23 mg/dL (9-16); Carbon Dioxide 30 mmol/L (22-29); Chloride 106 mmol/L (96-108); Cholesterol 165 mg/dL (<200); Estimated Glomerular Filt Rate > 60; Glucose Fasting 92 mg/dL (60-99); HDL Cholesterol 55 mg/dL (>40); LDL Cholesterol Calculated 95 mg/dL (<100); Potassium 4.2 mmol/L (3.3-5.1); Sodium 140 mmol/L (135-145); Total Protein 6.7 g/dL (6.5-8.0); Triglycerides 75 mg/dL (<150)
[2023-05-14 12:05] LABS: Creatinine Urine 149.71 mg/dL
[2023-05-14 12:12] LABS: PSA,Total (Free>4and<10) 2.74 ng/mL (0.00-4.00)
[2023-05-14 12:34] LABS: Bacteria Urine None Seen (None Seen); Hyaline Casts Urine 0-2 /LPF (0-2); RBC Urine 0-2 /HPF (0-2); Squamous Epithelial Cell Urine 0-2 /HPF (0-2); WBC Urine 0-5 /HPF (0-5)
== END 2023-05-14 10:58 | disposition home or self-care (01) ==
LOC: HO.LNP 10:57
PROVIDERS: Visit Provider Internal Medicine
DX: Z00.00 Encounter for general adult medical examination without abnormal findings (principal); R73.03 Prediabetes; D72.819 Decreased white blood cell count, unspecified; N40.0 Benign prostatic hyperplasia without lower urinary tract symptoms; Z12.5 Encounter for screening for malignant neoplasm of prostate
CPT/HCPCS: 80053; 80061; 81001; 82043; 82570; 83036; 84153; 85025

== ENCOUNTER 2023-06-17 13:01 | Outpatient (REF) | payer MEDICARE, SELFPAY ==
--- NOTE | ~2023-06-17 | XR_ITS ---
EXAMINATION: XR CHEST CLINICAL INFORMATION: Bronchitis. COMPARISON: Chest radiograph dated 04/09/2023. TECHNIQUE: 2 views of the chest were obtained. FINDINGS: The trachea remains in normal anatomic position. Heart size remains normal. There is no consolidation within either lung. Pleural spaces are clear. There is no pneumothorax or pleural effusion. No acute osseous abnormality. There is unchanged scoliosis. XR/XR chest 2V IMPRESSION: No acute cardiopulmonary disease.
== END 2023-06-17 13:02 | disposition home or self-care (01) ==
LOC: HO.HMGCX 13:01
PROVIDERS: PCP Internal Medicine; Visit Provider Internal Medicine
DX: J40 Bronchitis, not specified as acute or chronic (principal)
CPT/HCPCS: 71046

== ENCOUNTER 2023-06-17 13:49 | Outpatient (REF) | payer MEDICARE, SELFPAY ==
[2023-06-17 15:31] LABS: Influenza A PCR NEGATIVE (Negative); Influenza B PCR NEGATIVE (Negative); Resp Syncy Virus RNA Qual PCR NEGATIVE (Negative); SARS COV2 PCR INHOUSE NEGATIVE (Negative)
== END 2023-06-17 13:50 | disposition home or self-care (01) ==
LOC: HO.LAB 13:49
PROVIDERS: Visit Provider Internal Medicine
DX: Z86.19 Personal history of other infectious and parasitic diseases (principal); Z11.52 Encounter for screening for COVID-19; Z20.828 Contact with and (suspected) exposure to other viral communicable diseases
CPT/HCPCS: 0241U

== ENCOUNTER 2024-05-18 07:30 | Outpatient (REF) | payer MEDICARE, SELFPAY ==
[2024-05-18 11:20] LABS: MANUAL DIFF FLAG NO
[2024-05-18 11:35] LABS: Basophils Percent Auto 0.3 % (0-2); Eosinophils Absolute Auto 0.2 X10*3/uL (0.0-0.4); Eosinophils Percent Auto 4.1 % (0-4); Hematocrit 37.4 % (42.0-52.0); Hemoglobin 12.3 g/dl (14.0-18.0); Imm Gran Abs Auto 0.01 X10*3/uL (0.00-0.03); Imm Gran Pct Auto 0.3 % (0.0-0.4); Lymphocytes Absolute Auto 1.5 X10*3/uL (1.2-4.9); Lymphocytes Percent Auto 38.3 % (20-40); Mean Corpuscular HGB Conc 32.9 g/dl (31.0-36.0); Mean Corpuscular Hemoglobin 28.8 pg (27.0-33.0); Mean Corpuscular Volume 87.6 fL (80.0-98.0); Monocytes Absolute Auto 0.4 X10*3/uL (0.1-1.2); Monocytes Percent Auto 10.8 % (2-11); Neutrophils Absolute Auto 1.8 x10*3/uL (2.0-8.3); Neutrophils Percent Auto 46.2 % (45-73); Platelet Count 216 X10*3/uL (160-400); Red Blood Count 4.27 X10*6/uL (4.60-5.80); Red Cell Distribution Width 13.9 % (11.0-16.0); White Blood Count 3.9 X10*3/uL (4.8-10.8)
[2024-05-18 11:38] LABS: Appearance Urine Clear; Color Urine Yellow; Glucose Urine UA Negative (Negative); Leukocyte Esterase Urine Negative (Negative); Nitrite Urine Negative (Negative); PH 5.5 (5.0-9.0); Specific Gravity - Urine 1.015 (1.005-1.025); Urine Blood Negative (Negative); Urine Ketones Negative (Negative); Urine Protein Negative (Neg-Trace)
[2024-05-18 12:06] LABS: Estimated Average Glucose 108 mg/dL; Hemoglobin A1c % 5.4 % (<6.0)
[2024-05-18 12:23] LABS: Alanine Aminotransferase 18 U/L (0-40); Albumin Level 3.8 g/dL (3.5-5.0); Alkaline Phosphatase 60 U/L (39-117); Anion Gap 11 (12-20); Aspartate Amino Transferase 37 U/L (5-37); Bilirubin Total 1.6 mg/dL (0.0-1.0); Blood Urea Nitrogen 22 mg/dL (9-16); Calcium 8.8 mg/dL (8.4-10.2); Carbon Dioxide 27 mmol/L (22-29); Chloride 106 mmol/L (96-108); Cholesterol 167 mg/dL (<200); Estimated Glomerular Filt Rate > 60; Glucose Fasting 90 mg/dL (60-99); HDL Cholesterol 51 mg/dL (>40); LDL Cholesterol Calculated 99 mg/dL (<100); Potassium 4.4 mmol/L (3.3-5.1); Sodium 140 mmol/L (135-145); Triglycerides 88 mg/dL (<150)
--- OUTSIDE RECORDS SUMMARY | 2024-05-18 12:34 | XMS_ITS | Clinical Summary ---
Author Organization [facility] Address [address] [place] [address] Care Team Providers Care Vc++ Developer Name Role Phone You Kelley MD Primary Care Provider [phone] Allergies No known active allergies Medications Medication Sig Dispensed Refills Start Date End Date Status tamsulosin (FLOMAX) 0.4 MG CAPS Take 0.4 mg by mouth daily. 0 11/10/2021 Active sildenafil (VIAGRA) 100 MG tablet TAKE ONE-HALF TABLET BY MOUTH ONCE A DAY NEEDED 0 11/15/2021 Active Family History Medical History Relation Name Comments Cancer Father Hypertension Father Cancer Mother Relation Name Status Comments Father Mother Social History Tobacco Use Types Packs/Day Years Used Date Smoking Tobacco: Never Assessed Sex and Gender Information Value Date Recorded Sex Assigned at Not on file Gender Identity Not on file Sexual Orientation Not on file Job Start Date Occupation Industry Not on file Not on file Not on file Last Filed Vital Signs Vital Sign Reading Time Taken Comments Blood Pressure - - Pulse - - Temperature - - Respiratory Rate - - Oxygen Saturation - - Inhaled Oxygen Concentration - - Weight 81.6 kg (180 lb) 01/03/2022 10:55 AM EDT Height 180.3 cm (5' 11 ) 01/03/2022 10:55 AM EDT Body Mass Index 25.1 01/03/2022 10:55 AM EDT Plan of Treatment Health Maintenance Due Date Last Done Comments Hepatitis C Screening 1955 Depression Screening 1967 Preventative Health Evaluation 1973 DTap / Tdap / Td (1 - Tdap) 1974 Colon Cancer Screening (Colonoscopy) 01/22/2000 Shingrix-Zoster Vaccine (1 o f 2) 2005 Fall Risk Assessment 01/22/2020 Pneumococcal Vaccine (2 of 2 - PCV) 03/08/2021 03/08/2020 COVID-19 Vaccine (4 - 2023-2 5 season) 2023 04/02/2021, 08/11/2020, 07/21/2020 Influenza Vaccine (#1) 2023 02/24/2015 RSV Adult > 60+ Yrs or (1 - 1-dose 75+ series) 2030 Hepatitis B Vaccines Aged Out No long er eligible based on patient's age to complete this topic RSV Ped < 20 months Aged Out No longe r eligible based on patient's age to complete this topic Care Teams Vc++ Developer Relationship Specialty Start Date End Date You Kelley MD [address] [place] [address] PCP - General Internal Medicine 01/01/22
[2024-05-18 12:36] LABS: PSA,Total (Free>4and<10) 5.72 ng/mL (0.00-4.00)
[2024-05-18 12:52] LABS: Creatinine Urine 96.45 mg/dL; Microalbum/Creatinine Ratio Ur 13.4 ug/mg cr (<30)
[2024-05-20 12:43] LABS: Free Prostate Spec Ag 1.5 ng/mL; Percent Free Prostate Spec Ag 26 % (calc) (>25); Prostate Specific Ag Total 5.8 ng/mL (< OR = 4.0)
== END 2024-05-18 07:31 | disposition home or self-care (01) ==
LOC: HO.LNP 07:30
PROVIDERS: Visit Provider Internal Medicine
DX: Z00.00 Encounter for general adult medical examination without abnormal findings (principal); R73.03 Prediabetes; D72.819 Decreased white blood cell count, unspecified; N40.0 Benign prostatic hyperplasia without lower urinary tract symptoms; D72.820 Lymphocytosis (symptomatic); Z12.5 Encounter for screening for malignant neoplasm of prostate
CPT/HCPCS: 80053; 80061; 81003; 82043; 82570; 83036; 84153; 84154; 85025

== ENCOUNTER 2024-07-17 08:28 | Day surgery (SDC) | payer MEDICARE, SELFPAY ==
[2024-04-09 13:21] VITALS: BMI 24.3
--- NOTE | 2024-07-16 09:19 | HO.ANESPROP2 ---
HPI - Anesthesia Eval Consult details Narrative: 69yo M for Colonoscopy [facility] Past Medical History Medical History (Updated 04/09/24 @ 13:23 by Ursula Harvey RN) C. difficile enteritis BPH (benign prostatic hyperplasia) Erectile dysfunction Surgical History Surgical History (Updated 04/09/24 @ 13:23 by Ursula Harvey, JOANNE) History of surgery on arm H/O colonoscopy Social History Social History (Updated 04/09/24 @ 13:24 by Ursula Harvey RN) Household Members: Spouse Patient Tobacco Use Status: Never used Tobacco Meds Allergies Allergy/AdvReac Type Severity Reaction Status Date / Time No Known Allergies Allergy Verified 04/09/23 09:45 Home Medications ?Medication ?Instructions ?Recorded ?Confirmed ?Last Taken ?Type sildenafil 25 mg tablet (Viagra) 25 mg PO DAILY PRN Erectile 04/09/24 04/09/24 Unknown History Dysfunction Exam Height,Weight and Vital Signs: Height 6 ft Weight 81.193 kg Assessment and Plan Assessment Anesthesia Assessment: Chart Reviewed
--- NOTE | 2024-07-17 08:49 | P.CONAN_ITS ---
[facility] Past Medical History Medical History C. difficile enteritis BPH (benign prostatic hyperplasia) Erectile dysfunction Functional capacity: independent ambulation Family History Family history of problems with anesthesia: No Surgical History Surgical History History of surgery on arm H/O colonoscopy History of Problems with Anesthesia: No Social History Social History Household Members: Spouse Are you a primary career services coordinator to a significant other at home: No Do you presently have visiting nurse or other home services: No Patient Tobacco Use Status: Former Tobacco user Meds Allergies Allergy/AdvReac Type Severity Reaction Status Date / Time No Known Allergies Allergy Verified 07/17/24 08:56 Active Medications: Current Medications Lactated Ringer's (Lr) 1,000 mls @ 100 mls/hr IVCONT .Q10H TEVIN Sodium Biphosphate/Sodium Phosphate (Sodium Phosphate,Swain-Dibasic 133 Ml Enema) 133 ml [place] ONCE PRN PRN Reason: Poor Colonoscopy Prep Results Home Medications ?Medication ?Instructions ?Recorded ?Confirmed ?Last Taken ?Type sildenafil 25 mg tablet (Viagra) 25 mg PO DAILY PRN Erectile 04/09/24 04/09/24 Unknown History Dysfunction Exam Height,Weight and Vital Signs: Height 6 ft Weight 81.193 kg Airway Mallampati Class: II TM Dist: >3cm Neck ROM: Full Heart: RRR Lungs: CTA Assessment and Plan Assessment Anesthesia Assessment: Anesthesia Plan Discussed and Chart Reviewed Final Anesthetic Review Family History of Problems with Anesthesia: No History of Problems with Anesthesia: No NPO: Yes ASA Class: II Final Preanesthetic Review: Meds/Allgs Chart Reviewed, Consent Obtained/Reviewed and Anes Risks/Benef Reviewed Patient Risk: Low Procedure Risk: Low Anesthetic Plan Anesthetic Plan: MAC: Disposition: Standard PACU
[2024-07-17 08:55] VITALS: BMI 23.5
[2024-07-17] MEDS: Lactated Ringers 1,000 ML 100 ML IVCONT (09:17)
[2024-07-17 09:25] VITALS: BP 123/69; PULSE 53; RESP 18; TEMP 36.7; O2SAT 100
--- NOTE | 2024-07-17 09:46 | P.CONAN_ITS ---
[facility] Past Medical History Medical History C. difficile enteritis BPH (benign prostatic hyperplasia) Erectile dysfunction Functional capacity: independent ambulation Family History Family history of problems with anesthesia: No Surgical History Surgical History History of surgery on arm H/O colonoscopy History of Problems with Anesthesia: No Social History Social History Household Members: Spouse Are you a primary healthcare or medical to a significant other at home: No Do you presently have visiting nurse or other home services: No Patient Tobacco Use Status: Former Tobacco user Substance Use Frequency: Occasionally Have you been hit, kicked, punched, or otherwise hurt by someone within the past year? If so, by whom?: No Are you DNR?: No Advance Directives: No Advance Directives Information Provided: Yes Poor oral hygiene: No Meds Allergies Allergy/AdvReac Type Severity Reaction Status Date / Time No Known Allergies Allergy Verified 07/17/24 08:56 Active Medications: Current Medications Lactated Ringer's (Lr) 1,000 mls @ 100 mls/hr IVCONT .Q10H TEVIN Last Admin: 07/17/24 09:17 Dose: 100 mls/hr Naloxone HCl (Naloxone Hcl 0.4 Mg/Ml Vial) 0.04 mg IVPUSH Q5M PRN PRN Reason: Excessive sedation or RR < 8 Sodium Biphosphate/Sodium Phosphate (Sodium Phosphate,[place]-Dibasic 133 Ml Enema) 133 ml [place] ONCE PRN PRN Reason: Poor Colonoscopy Prep Results Home Medications ?Medication ?Instructions ?Recorded ?Confirmed ?Last Taken ?Type sildenafil 25 mg tablet (Viagra) 25 mg PO DAILY PRN Erectile 04/09/24 04/09/24 Unknown History Dysfunction Exam Height,Weight and Vital Signs: Height 6 ft Weight 78.5 kg Last Vital Signs Temp 98.1 F 07/17/24 09:25 Pulse 53 07/17/24 09:25 Resp 18 07/17/24 09:25 BP 123/69 07/17/24 09:25 Pulse Ox 100 07/17/24 09:25 O2 Del Method Room Air 07/17/24 09:25 Airway Heart: RRR Lungs: CTA Assessment and Plan Assessment Anesthesia Assessment: Anesthesia Plan Discussed Final Anesthetic Review Family History of Problems with Anesthesia: No History of Problems with Anesthesia: No NPO: Yes Final Preanesthetic Review: Meds/Allgs Chart Reviewed, Consent Obtained/Reviewed and Anes Risks/Benef Reviewed Patient Risk: Low Procedure Risk: Low Anesthetic Plan Anesthetic Plan: MAC: Disposition: Standard PACU
[2024-07-17 10:45] VITALS: BP 123/75; PULSE 45; RESP 16; TEMP 36.1; O2SAT 99
--- NOTE | 2024-07-17 10:45 | PM.OP ---
Brief Operative Note Date of Service: 07/17/24 Pre-op diagnosis: Screening Post-op diagnosis: other (Polyp) Procedure: Colonoscopy to the cecum and TI with bx/removal of polyp Surgeon: Andrez Alfaro MD Anesthesia: MAC Was an Spray Rig Operator used for this Procedure?: No Estimated blood loss (mL): 2.0 Pathology: other (A. Rectal polyp) Condition: stable Disposition: PACU
[2024-07-17 11:00] VITALS: BP 128/77; PULSE 42; RESP 16; TEMP 36.1; O2SAT 99
--- NOTE | 2024-07-17 11:20 | HO.POSTANES ---
Post Anesthesia Evaluation Post Anesthesia Evaluation Date of Service: 07/17/24 Vital Signs: Vital Signs Temp Pulse Resp BP Pulse Ox O2 Del Method 07/17/24 11:00 97 F 42 L 16 128/77 99 Room Air 07/17/24 10:45 97 F 45 L 16 123/75 99 Room Air 07/17/24 09:25 98.1 F 53 18 123/69 100 Room Air Anesthesia: Monitored Mental Status: Awake Pain Control: Satisfactory Nausea/Vomiting: None Hydration: Adequate Anesthesia-Related Issues: No Anes. Related Issues
--- NOTE | 2024-07-17 11:29 | OP_ITS ---
DATE OF SERVICE: 07/17/2024 SURGEON: Andrez Alfaro MD INDICATIONS: The patient presents for evaluation of colorectal cancer screening and family history of colon cancer. Full consent was obtained from him for this, including risks of bleeding and perforation. PREOPERATIVE DIAGNOSIS: Colorectal cancer screening and family history of colon cancer. POSTOPERATIVE DIAGNOSIS: PROCEDURE PERFORMED: ESTIMATED BLOOD LOSS: COMPLICATIONS: ANESTHESIA: Medication used, monitored anesthesia care. ASSISTANTS: SPECIMENS: POSTOPERATIVE DIAGNOSES: 1. Colorectal cancer screening and family history of colon cancer. 2. Small colon polyp. 3. Sigmoid diverticulosis. 4. Internal hemorrhoids. PROCEDURES PERFORMED: Colonoscopy to the cecum and terminal ileum with biopsy removal of the polyp. DESCRIPTION OF PROCEDURE: The patient was placed in left lateral decubitus position. The digital rectal exam revealed no abnormalities. The Olympus video pediatric colonoscope was entered into the rectum and advanced to the cecum. Advancement to the cecum was difficult as usual in his case. Abdominal pressure was applied basically from the very beginning of the case until we were able to enter the cecum. However, once in the cecum, I did identify normal-appearing cecal pouch with appendiceal orifice and a normal-appearing ileocecal valve. There was transillumination of light deep in the right lower quadrant. The terminal ileum was cannulated and appeared normal. The scope was withdrawn back in the colon. The scope was then slowly withdrawn assessing all mucosal surfaces carefully. Preparation was excellent. The only polyp I visualized was an approximately 4 mm polyp in the rectum, which was biopsied and completely removed with the cold biopsy forceps. I did not visualize any other polyps, colitis, nor angiodysplasia. There was a mild amount of sigmoid diverticulosis. In the rectum, scope was retroflexed visualizing small internal hemorrhoids, but no other pathology. The rectal mucosa appeared normal. The scope was straightened and withdrawn from the patient. He tolerated the procedure well and was returned to the recovery area in stable condition. IMPRESSION: 1. Small colon polyp. 2. Mild sigmoid diverticulosis. 3. Small internal hemorrhoids. PLAN: The results of the biopsy will be checked. I would recommend a repeat colonoscopy in 5 years for further surveillance. He will otherwise see me on a p.r.n. basis. Andrez Alfaro MD RMOmar/MAHOGANYL / [phone]
== END 2024-07-17 11:30 | disposition home or self-care (01) ==
PROVIDERS: PCP Internal Medicine; Visit Provider Internal Medicine
PROC: 0DJD8ZZ Inspection of Lower Intestinal Tract, Via Natural or Artificial Opening Endoscopic (ICD-10-PCS; CPT 45378; principal; 2024-07-17 09:30)
DX: Z12.11 Encounter for screening for malignant neoplasm of colon (principal); Z80.0 Family history of malignant neoplasm of digestive organs; K62.1 Rectal polyp; K57.30 Diverticulosis of large intestine without perforation or abscess without bleeding; K64.8 Other hemorrhoids; N40.0 Benign prostatic hyperplasia without lower urinary tract symptoms; N52.9 Male erectile dysfunction, unspecified; Z86.19 Personal history of other infectious and parasitic diseases; Z79.899 Other long term (current) drug therapy
CPT/HCPCS: 45380; 88305; J2003; J2704

== ENCOUNTER 2024-10-30 09:38 | Outpatient (AMB) | payer MEDICARE, SELFPAY ==
--- OUTSIDE RECORDS SUMMARY | 2024-07-16 12:15 | XMS_ITS ---
Author Organization You Kelley MD Address [address] [place] [phone] Care Team Providers Care Litharge Mill Operator Name Role Phone You Kelley Primary Care Provider REASON FOR VISIT pre-op Dr. James 08-19-2023 right eye cataract no EKG or labs needed Encounters Encounter Location Date Provider Diagnosis You Kelley MD [address] [place] [phone] 07/16/2024 You Kelley Plan Of Treatment Next Appt Details Provider Name:You green, 05/20/2025 07:45:00 AM, [address] [place] [address], [address] [place] [address], [phone], Provider Name:You green, 05/27/2025 11:00:00 AM, [address] [place] [address], Suite [facility], [place], [place], [phone], Progress Notes * Denny BRITO ADOB:1955 (69 yo M)Acc No.[id number]:07/16/2024 Patient: Denny LISA Provider: Zarina Kelley MD :1955 A ge:69 Y S ex:Male Date:07/16/2024 Address:[address] [place], [place] [phone] Subjective: * Chief Complaints: * 1 . [...] 07/16/2024 Generated for Rosie aldridge/Imani/Anthonyitting on: 0 10/30/2024 09:45 AM EDT
[2024-10-30 09:41] VITALS: BP 128/77; PULSE 43; BMI 23.6
--- NOTE | 2024-10-30 09:41 | MHC.OFFVIS ---
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 Kelley/Sinus bradycardia Intake Note: New patient Dr Kellye dx sinsus jermain HR was in 30 during cataract procedure they need ok to do the other eye c/o dizziness at times Construction Estimator Required: No Allergies No Known Allergies Allergy (Verified 07/17/24 08:56) Medication List - Last Reconciled 10/30/24 by Chester Hoffman MD moxifloxacin 0.5% 1 drp ophthalmic-Right QID sildenafil (Viagra) 25 mg PO DAILY PRN HPI Comments Details: Thank you for referring Denny in cardiology consultation today for sinus bradycardia as well as lightheadedness. He is a pleasant 69-year-old male without any clear prior cardiovascular history or cardiovascular risk factors. He is generally in very good shape and says when he is in [place] he is usually biking every where and biking up and down hills. He recently underwent cataract surgery. Post surgery while he was laying down in bed he was feeling lightheaded. After some period of time he felt better and then he was got up and he was walking he suddenly felt like he was lightheaded he was noted to be pale at that time by the staff and was laid down and was noted to have heart rate in the 30s. Do not have any EKGs around that. He is now scheduled to undergo repeat surgery in other eye for cataract and that was concerned about his bradycardia and was asked to see hospice administrator. He said he intermittently gets these symptoms of lightheadedness when he is undergoing eye procedure. He has never had a syncopal episode. He denies any palpitations. Denies any exercise intolerance. No shortness of breath, orthopnea, PND. [facility] Medical History C. difficile enteritis BPH (benign prostatic hyperplasia) Erectile dysfunction Surgical History History of surgery on arm H/O colonoscopy Social History Household Members: Spouse Are you a primary hospice patient care secretary to a significant other at home: No Do you presently have visiting nurse or other home services: No Patient Tobacco Use Status: Former Tobacco user Review of Systems Const Denies chills, Denies daytime sleepiness, Denies fatigue, Denies fever(s), Denies frequent falls, Denies poor appetite, Denies snoring, Denies stops breathing during sleep, Denies weakness, Denies weight gain and Denies weight loss Eyes Denies loss of vision ENT Reports dizziness and Denies hearing loss Card Denies chest pain, Denies claudication, Denies leg edema, Denies lightheadedness, Denies palpitations, Denies dyspnea, Denies dyspnea on exertion and Denies orthopnea Resp Denies cough, Denies excessive phlegm production, Denies dyspnea, Denies dyspnea on exertion, Denies snoring and Denies wheezing GI Denies abdominal pain, Denies hematochezia, Denies change in bowel habits, Denies nausea and Denies vomiting Denies dysuria and Denies urinary frequency Musc Denies arthralgias, Denies muscle weakness, Denies numbness and Denies other (frequent falls) Skin/Breast Denies nail changes and Denies rash Neuro Denies Abnormal speech present, Reports dizziness, Denies frequent falls, Denies loss of vision, Denies memory loss, Denies numbness and Denies weakness Psych Denies depression and Denies memory loss Endo Denies fatigue and Denies palpitations Charlie/Lymph Reports easy bruising and Reports other (anemia) Aller/Immun Denies wheezing Physical Exam Vital Signs: Last Vital Signs Pulse 69 10/30/24 09:59 BP 115/81 10/30/24 09:59 BMI result Body Mass Index 23.6 Const General: cooperative, comfortable, no acute distress, well developed, alert, awake and Physically active Nutritional Appearance: average body habitus and well nourished Orientation/consciousness: patient oriented x3 Limitations: no limitations HEENT Head: Yes normocephalic and Yes atraumatic Neck Neck: Yes trachea midline, Yes supple and Yes no JVD Resp Effort & Inspection: normal respiratory effort Auscultation: clear to auscultation bilaterally Cardio Jugular venous distension: no JVD Palpation: normal PMI Rate: bradycardic Rhythm: regular rhythm Heart sounds: S1 normal heart sound present, S2 normal heart sound present, no click, no gallops, no murmurs and no rubs GI Auscultation: normal bowel sounds Skin General skin exam: no rashes or lesions noted Neuro General: patient oriented x3 and no focal motor deficits Speech: No Abnormal speech present Extrem General: Yes no clubbing, cyanosis or edema Psych Appearance: grossly normal Office Procedures EKG Details: EKG shows sinus bradycardia at 48 beats per minute with rightward axis otherwise normal EKG 11951-Byhqzamhlljdlafus, Complete Assessment & Plan Assessment & Plan (1) Near syncope: Code(s): R55 - Syncope and collapse Category: Medical Plan: Patient with near-syncope postoperatively and symptoms highly suggestive of vasovagal syncope which can give significant sinus bradycardia. Discussed with the patient about mechanism he is well aware of it. He has never had prior diagnose of it. I would suggest a head-up tilt-table test to evaluate for hemodynamic response to head-up tilt to guide further therapy. If he has significant cardio inhibitory response is the only scenario he may benefit from pacemaker. This was discussed with him. He also has baseline sinus bradycardia at rest which is most likely related to his excellent aerobic cardiac capacity. I do not think this is pathologic sinus bradycardia. At this point time I would suggest to further delineate to a treadmill stress test to evaluate for chronotropic competence and a 3 day Holter monitor to rule out any significant pauses. This was discussed with him. He is agreeable to pursue this test although with reluctance. If these tests are within normal limits, I would suggest that he is optimized to undergo cataract surgery with very low risk. Will follow up in the clinic if need be. Thank you for allowing me to partake in his care Orders: Orders ECG Tilt Table Test Today R55 - Syncope and collapse CA stress test Today R00.1 - Bradycardia, unspecified ECG 3 day holter monitor Today R00.1 - Bradycardia, unspecified Coding Level of Care Code New Pt Level 4 (38551) Complex EM visit Add On G2211 Diagnoses Near syncope R55 CPT Codes EKG - CPT: 93249-Tgezmhazdmetbrusw, Complete ([id number])
--- OUTSIDE RECORDS SUMMARY | 2024-10-30 09:45 | XMS_ITS | Clinical Summary ---
Author Organization [facility] Address [address] [place] [address] Care Team Providers Care Hse Advisor Name Role Phone You Kelley MD Primary Care Provider [phone] Allergies No known active allergies Medications Medication [...] 2023 04/02/2021, 08/11/2020, 07/21/2020 Influenza Vaccine (#1) 2024 02/24/2015 RSV Adult > 60+ Yrs or (1 - 1-dose 75+ series) 2030 Hepatitis B Vaccines Aged Out No long er eligible based on patient's age to complete this topic RSV Ped < 20 months Aged Out No longe r eligible based on patient's age to complete this topic Care Teams Hse Advisor Relationship Specialty Start Date End Date You Kelley MD [address] [place] [address] PCP - General Internal Medicine 01/01/22
--- OUTSIDE RECORDS SUMMARY | 2024-10-30 09:45 | XMS_ITS | Patient Health Record ---
Author Organization [facility] Address [address] [place] [address] Care Team Providers Care Photographic Process Attendant Name Role Phone You Kelley MD Primary Care Provider Andrez Barba [phone] Allergies No Known Allergies Results Component Value Reference Range Notes Pathology (Not yet reviewed by provider) Interpretation: Performing Lab:[facility], [address] [place] [phone] Notes/Report: Reason For Referral No Information Medications Medication SIG (Take, Route, Frequency, Duration) Notes Start Date End Date Status Viagra 25 MG 1 tablet as needed Orally prn Active Immunizations Vaccine Route Administration Date Status Comme nts Influenza Unknown 05/29/2018 Refused Influenza Unknown 12/26/2023 Refused Problems Problem Type SNOMED Code ICD Code Onset Dates Problem Status W/U Status Risk Notes Problem 571889245 Encounter for screening for malignant neoplasm of colon (Z12.11) Active confirmed Problem 269915144 Abdominal bloating (R14.0) Active confirmed Problem Pre-procedure evaluation check (133030732) Encounter for other preprocedural examination (Z01.818) Active confirmed Problem 217082762 Family history o f colon cancer (Z80.0) Active confirmed Vital Signs Temperature 97.1 degrees Fahrenheit 12/26/2023 Blood pressure diastolic 00 mm Hg 12/26/2023 Height 72 in 12/26/2023 Blood pressure systolic 000 mm Hg 12/26/2023 Weight 179 lbs 12/26/2023 BMI 24.27 kg/m2 12/26/2023 Encounters Encounter Location Date Provider Diagnosis [facility] [place] Outpatient [address] [place] [id number] 07/17/2024 Andrez Alfaro Colon cancer screeni ng Z12.11 ; Family history of colon cancer Z80.0 ; Colon polyps K63.5 ; Diverticulosis of large intestine without perforation or abscess without bleeding K57.30 and Other hemorrhoids K64.8 [facility] [address] [place] [address] 12/26/2023 Andrez Alfaro Encounter for screen ing for malignant neoplasm of colon Z12.11 ; Encounter for other preprocedural examination Z01.818 and Family history of colon cancer Z80.0 [facility] [address] [place] [address] 04/13/2024 Andrez Alfaro Assessments Encounter Date Diagnosis (ICD Code) Assessment Notes Treatment Notes Treatment Clinical Notes Section Notes 07/17/2024 Colon cancer screening (ICD-10 - Z12.11) 07/17/2024 Family history of colon cancer (ICD-10 - Z80.0) 12/26/2023 Encounter for screening for malignant neoplasm of colon (ICD-10 - Z12.11) Overall, Denny appears quite well. I did recommend a followup screening colonoscopy given his family history and his last exam being over 5 years ago. We did review the rationale for that regard to colon cancer prevention. Full consent was obtained for this, including risks of bleeding and perforation. The procedure will be done with monitored anesthesia care. Denny was comfortable with this plan. Thank you again for allowing me to participate in Denny's care. I shall continue to keep you advised of his progress. 12/26/2023 Encounter for other preprocedural examination (ICD-10 - Z01.818) Overall, Denny appears quite well. I did recommend a followup screening colonoscopy given his family history and his last exam being over 5 years ago. We did review the rationale for that regard to colon cancer prevention. Full consent was obtained for this, including risks of bleeding and perforation. The procedure will be done with monitored anesthesia care. Denny was comfortable with this plan. Thank you again for allowing me to participate in Denny's care. I shall continue to keep you advised of his progress. 07/17/2024 Colon polyps (ICD-10 - K63.5) 12/26/2023 Family history of colon cancer (ICD-10 - Z80.0) Overall, Denny appears quite well. I did recommend a followup screening colonoscopy given his family history and his last exam being over 5 years ago. We did review the rationale for that regard to colon cancer prevention. Full consent was obtained for this, including risks of bleeding and perforation. The procedure will be done with monitored anesthesia care. Denny was comfortable with this plan. Thank you again for allowing me to participate in Denny's care. I shall continue to keep you advised of his progress. 07/17/2024 Diverticulosis of large intestine without perforation or abscess without bleeding (ICD-10 - K57.30) 07/17/2024 Other hemorrhoids (ICD-10 - K64.8) Plan Of Treatment Pending Test Test Name Order Date Pathology 07/17/2024 Future Test Test Name Order Date COLONOSCOPY 04/16/2012 COLONOSCOPY 05/29/2018 COLONOSCOPY 12/26/2023 Insurance Providers Payer Name Payer Address Payer Phone Subscriber Number Group Number Insured Name Patient Relationship to Insured Coverage Start Date Coverage End Date [facility] [address] [address] [place] [address] [id number] DENNY BECKER Self - patient is the insured Medical (General) History Medical History History ICD Code Negative colonoscopies in , 2000, and 2006(had a neg. virtual colonography in 2006 due to an incomplete exam), negative colonoscopy in 05/2012 Denies SD,DM,CVA,Lung disease,renal dise ase Colonoscopy 08/2018 with only a hyperplas tic polyp C.diff 03/2023 from Augmentin----treated with Vancomycin BPH-sees Dr. Maradiaga Surgical History Surgery Date(Month/Year) Ruptured Biceps tendon surgery
--- OUTSIDE RECORDS SUMMARY | 2024-10-30 09:45 | XMS_ITS | Clinical Summary ---
Author Organization [facility] Address [address] [place] [address] Care Team Providers Care Sheep Farm Worker Name Role Phone You Kelley MD Primary Care Provider Allergies No known active allergies Medications No known medications Immunizations Immunization Administration Dates Next Due Tdap Vaccine =>7YO IM 12/09/2012 Social History Tobacco Use Types Packs/Day Years Used Date Smoking Tobacco: Never Assessed Sex and Gender Information Value Date Recorded Sex Assigned at Not on file Legal Sex Male 18:37 EDT Gender Identity Not on file Sexual Orientation Not on file Last Filed Vital Signs Vital Sign Reading Time Taken Comments Blood Pressure 116/82 12/09/2012 1843 EDT Pulse - - Temperature 36.6 C (97.9 F) 12/09/2012 1843 EDT Respiratory Rate 14 12/09/2012 1843 EDT Oxygen Saturation 98% 12/09/2012 1843 EDT Inhaled Oxygen Concentration - - Weight - - Height - - Body Mass Index - - Plan of Treatment Health Maintenance Due Date Last Done Comments Hepatitis C Screen 1955 Fall Risk Screening 01/22/2020 COVID-19 Vaccine (2023- season) 2023 RSV Immunization ( o r 60+ Years) (1 - 1-dose 75+ series) 2030 Care Teams Sheep Farm Worker Relationship Specialty Start Date End Date You Kelley MD [address] [place] [address] [address], [place]VA [address] PCP - General 12/12/12
[2024-10-30 09:57] VITALS: BP 114/76; PULSE 53
[2024-10-30 09:59] VITALS: BP 115/81; PULSE 69
== END 2024-10-30 10:30 | disposition home or self-care (01) ==
LOC: HO.HCS 09:39
PROVIDERS: PCP Internal Medicine; Visit Provider Internal Medicine Cardiovascular Disease
DX: R55 Syncope and collapse (principal)
CPT/HCPCS: 93010; 99204; G2211

== ENCOUNTER → 2024-10-30 09:38 | Outpatient (BNVA) | payer MEDICARE, SELFPAY | PROVIDERS: PCP Internal Medicine; Visit Provider Internal Medicine Cardiovascular Disease | DX: R55 Syncope and collapse (principal); R00.1 Bradycardia, unspecified | CPT/HCPCS: 93005; 99202 ==

== ENCOUNTER → 2024-12-07 08:25 | Outpatient (REF) | payer MEDICARE, SELFPAY ==
--- OUTSIDE RECORDS SUMMARY | 2024-07-16 12:15 | XMS_ITS ---
Author Organization You Kelley MD Address [address] [place] [phone] Care Team Providers Care Salt Manager Name Role Phone You Kelley Primary Care Provider REASON FOR VISIT pre-op Dr. James 08-19-2023 right eye cataract no EKG or labs needed Encounters Encounter Location Date Provider Diagnosis You Kelley MD [address] [place] [phone] 07/16/2024 You Kelley Plan Of Treatment Next Appt Details Provider Name:You green, 05/20/2025 07:45:00 AM, [address] [place] [address], [address] [place] [address], [phone], Provider Name:You green, 05/27/2025 11:00:00 AM, [address] [place] [address], Suite [facility], [place], [place], [phone], Progress Notes * Denny BRITO ADOB:1955 (69 yo M)Acc No.[id number]:07/16/2024 Patient: Denny LISA Provider: Zarina Kelley MD :1955 A ge:69 Y S ex:Male Date:07/16/2024 Address:[address] [place], [place] [phone] Subjective: * Chief Complaints: * 1 . pre-op Dr. James 08-19-2023 right eye cataract no EKG or labs needed. * Medical History: Objective: * Vitals: Assessment: Plan: * Treatment: * * The named appointment provid er may or may not be the originator of this progress note, and it is not deemed complete until electronically signed by the appointment provider. Sign off status: Pending * Provider: Zarina Kelley MD Date: 07/16/2024 Generated for Rosie aldridge/Imani/Anthonyitting on: 0 12/07/2024 08:50 AM EDT
--- NOTE | 2024-12-07 08:32 | HM_ITS ---
Conclusion: 1. Patient was monitored for total period of 3 days 2. Baseline was normal sinus rhythm with average heart rate of 55 beats per minute 3. No significant pauses noted but frequent sinus bradycardia noted with 70.7% of the time heart rate below 60 beats per minute 4. Rare PACs and PVCs noted 5. Few episodes of SVT noted, longest lasting 21 beats in his fastest 143 beats per minute 6. No patient reported events MTDD
--- NOTE | 2024-12-07 08:32 | CA_ITS ---
Acquisition Time: 2024-12-07 08:46:45 Total Exercise Time: 00:10:00 Test Indications: BRADYCARDIA Medications: Protocol: JOHN Max HR: 125 BPM 82% of Pred: 151 BPM Max BP: 190/78 mmHG Max Work Load: 11.7 METS Exercise stress test with exercise 10 mins of John Protocol, achieving 83% MPHR, with reports of mild SOB, no chest pain, with junctional rhythm at the start of the exercise later back in sinus, with isolated PACs and PVCs, with normotensive response to exercise. Without any EKG changes meeting criteria for ischemia. In recovery, pt's bretahing back to baseline. Test reviewed with Dr. Slaughter. Referred By: Chester Hoffman Electronically Signed By: Fernando Schmidt
--- OUTSIDE RECORDS SUMMARY | 2024-12-07 08:50 | XMS_ITS | Patient Health Record ---
Author Organization [facility] Address [address] [place] [address] Care Team Providers Care Product Control And Logistics Analyst Name Role Phone You Kelley MD Primary Care Provider Andrez Barba [phone] Allergies No Known Allergies Results Component Value Reference Range Notes Pathology (Not yet reviewed by provider) Interpretation: Performing Lab:[facility], [address] [place] [id number] Notes/Report: Reason For Referral No Information Medications Medication SIG (Take, Route, Frequency, Duration) Notes Start Date End Date Status Viagra 25 MG 1 tablet as needed Orally prn Active Immunizations Vaccine Route Administration Date Status Comme nts Influenza Unknown 05/29/2018 Refused Influenza Unknown 12/26/2023 Refused Problems Problem Type SNOMED Code ICD Code Onset Dates Problem Status W/U Status Risk Notes Problem 392417596 Encounter for screening for malignant neoplasm of colon (Z12.11) Active confirmed Problem 749129895 Abdominal bloati ng (R14.0) Active confirmed Problem Encounter for other preprocedural examination (Z01.818) Active confirmed Problem 641848806 Family history o f colon cancer (Z80.0) Active confirmed Vital Signs Temperature 97.1 degrees Fahrenheit 12/26/2023 Blood pressure diastolic 00 mm Hg 12/26/2023 Height 72 in 12/26/2023 Blood pressure systolic 000 mm Hg 12/26/2023 Weight 179 lbs 12/26/2023 BMI 24.27 kg/m2 12/26/2023 Encounters Encounter Location Date Provider Diagnosis [facility] [place] [address] [place] [id number] 07/17/2024 Andrez Alfaro Colon cancer screeni ng Z12.11 ; Family history of colon cancer Z80.0 ; Colon polyps K63.5 ; Diverticulosis of large intestine without perforation or abscess without bleeding K57.30 and Other hemorrhoids K64.8 [facility] [address] [place] [address] 12/26/2023 Andrez Alfaro Encounter for screen ing for malignant neoplasm of colon Z12.11 ; Encounter for other preprocedural examination Z01.818 and Family history of colon cancer Z80.0 [facility] [address] [place] [address] 04/13/2024 Andrez Alfaro Assessments Encounter Date Diagnosis [...] Insured Coverage Start Date Coverage End Date [facility] [address] [address] [place] [address] [id number] DENNY BECKER Self - patient is the insured Medical (General) History Medical History History ICD Code Negative colonoscopies in , 2000, and 2006(had a neg. virtual colonography in 2006 due to an incomplete exam), negative colonoscopy in 05/2012 Denies MT,DM,CVA,Lung disease,renal dise ase Colonoscopy 08/2018 with only a hyperplas tic polyp C.diff 03/2023 from Augmentin----treated with Vancomycin BPH-sees Dr. Maradiaga Surgical History Surgery Date(Month/Year) Ruptured Biceps tendon surgery
--- OUTSIDE RECORDS SUMMARY | 2024-12-07 08:51 | XMS_ITS | Clinical Summary ---
Author Organization [facility] Address [address] [place] [address] Care Team Providers Care Fiber Optic Central Office Installer Name Role Phone You Kelley MD Primary [...] - 1-dose 75+ series) 2030 Care Teams Fiber Optic Central Office Installer Relationship Specialty Start Date End Date You Kelley MD [address] [place] [address] [address], [place]VA [address] PCP - General 12/12/12
--- OUTSIDE RECORDS SUMMARY | 2024-12-07 08:51 | XMS_ITS | Clinical Summary ---
Author Organization [facility] Address [address] [place] [address] Care Team Providers Care Ore Puncher Name Role Phone You Kelley MD Primary Care Provider Surgical History Surgery Date Site/Laterality Comments SHOULDER SURGERY PROCEDURE:SHOULDER SURGERY Family History Medical History Relation Name Comments Cancer Father Hypertension Father Cancer Mother Relation Name Status Comments Father Mother Social History Tobacco Use Types Packs/Day Years Used Date Smoking Tobacco: Never Assessed Sex and Gender Information Value Date Recorded Sex Assigned at Not on file Legal Sex Male 12:49 AM EST Gender Identity Not on file Sexual Orientation Not on file Obstetrics History Last Filed Vital Signs Vital Sign Reading Time Taken Comments Blood Pressure - - Pulse - - Temperature - - Respiratory Rate - - Oxygen Saturation - - Inhaled Oxygen Concentration - - Weight 81.6 kg (180 lb) 01/03/2022 10:55 AM EDT Height 180.3 cm (5' 11 ) 01/03/2022 10:55 AM EDT Body Mass Index 25.1 01/03/2022 10:55 AM EDT Plan of Treatment Upcoming Encounters Date Type Department Care Team (Late st Contact Info) Description 01/19/2025 1:45 PM EDT Appointment [facility] [address] [place] [address] Health Maintenance Due Date Last Done Comments DTaP,Tdap,and Td Vaccines (1 - Tdap) 1974 Pneumococcal Vaccine: 50+ Ye ars (1 of 1 - PCV) 2005 Zoster Vaccines (1 of 2) 2005 Abdominal Aortic Aneurysm (A AA) Screen 03/29/2022 Cholesterol Screening (Lipid Panel) 03/29/2022 Colorectal Cancer Screening: Colonoscopy 03/29/2022 Falls Risk Assessment 03/29/2022 Hepatitis C Screening 03/29/2022 Medicare Annual Wellness Visit 03/29/2022 Social Influencers of Health Screening 03/29/2022 COVID-19 Vaccine (1 - 2023-2 5 season) 2023 Depression Screening 04/15/2024 Influenza Vaccine (#1) 2024 RSV Immunization Adult Patie nts (1 - 1-dose 75+ series) 2030 HIB Vaccines Aged Out No longer eligi ble based on patient's age to complete this topic HPV Vaccines Aged Out No longer eligi ble based on patient's age to complete this topic Hepatitis A Vaccines Aged Out No long er eligible based on patient's age to complete this topic Hepatitis B Vaccines Aged Out No long er eligible based on patient's age to complete this topic IPV Vaccines Aged Out No longer eligi ble based on patient's age to complete this topic MMR Vaccines Aged Out No longer eligi ble based on patient's age to complete this topic Meningococcal ACWY Vaccine Aged Out N o longer eligible based on patient's age to complete this topic Meningococcal B Vaccine Aged Out No l onger eligible based on patient's age to complete this topic RSV Immunization Patients Un kika 20 months Aged Out No longer eligible b ased on patient's age to complete this topic Varicella Vaccines Aged Out No longer eligible based on patient's age to complete this topic Insurance [employer] MEDICARE Care Teams Ore Puncher Relationship Specialty Start Date End Date You Kelley MD PCP - General Internal Medicine 01/01/22
--- OUTSIDE RECORDS SUMMARY | 2024-12-07 08:51 | XMS_ITS | Clinical Summary ---
Author Organization [facility] Address [address] [place] [address] Care Team Providers Care Ground Mixer Name Role Phone You Kelley MD Primary Care Provider [phone] [phone] Allergies No known active allergies Medications Medication [...] age to complete this topic Care Teams Ground Mixer Relationship Specialty Start Date End Date You Kelley MD [address] [place] [address] PCP - General Internal Medicine 01/01/22
== END ==
LOC: HO.CARD 08:25
PROVIDERS: PCP Internal Medicine; Visit Provider Internal Medicine Cardiovascular Disease
DX: R00.1 Bradycardia, unspecified (principal)
CPT/HCPCS: 93017; 93242

== ENCOUNTER → 2024-12-07 08:32 | Outpatient (BNV) | payer MEDICARE, SELFPAY | PROVIDERS: PCP Internal Medicine | DX: I49.1 Atrial premature depolarization (principal); I49.3 Ventricular premature depolarization | CPT/HCPCS: 93016; 93018 ==

== ENCOUNTER 2025-03-02 08:46 | Outpatient (AMB) | payer MEDICARE, SELFPAY ==
[2025-03-02 08:58] VITALS: BP 126/80; PULSE 53
--- NOTE | 2025-03-02 08:58 | A.OFFVIS_ITS ---
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 He reports that he had been feeling well until he stood upright to leave, then had the lightheadedness and presyncope. He was noted to be bradycardic at that time. For this reason he was referred to cardiology and on last visit testing was ordered. Stress test indicated low resting heart rate but normal Heart rate response to exercise with no ischemia. Tilt table test confirmed orthostatic hypotension, Dysautonomia. Holter monitor showed sinus bradycardia and sinus rhythm with rare PACs and PVCs. No significant pauses or high-degree heart blocks. He has done well since that time with no recurrent symptoms. He tells me he has had presyncope in the past after having eye exams. He recalls 1 syncopal event after having vomiting and diarrhea. He does not get chest discomfort, shortness of breath, heart palpitations, leg edema. Patient maintains physical activity with bicycling, ping pong, tennis, skiing, and ice hockey. [facility] Medical History C. difficile enteritis BPH (benign prostatic hyperplasia) Erectile dysfunction Surgical History History of surgery on arm H/O colonoscopy Social History Household Members: Spouse Are you a primary healthcare administrative assistant to a significant other at home: No Do you presently have visiting nurse or other home services: No Patient Tobacco Use Status: Former Tobacco user Review of Systems Const All systems reviewed & are unremarkable except as noted in HPI and below Denies daytime sleepiness, Denies difficulty sleeping, Denies snoring, Denies stops breathing during sleep and Denies weakness ENT Details: lightheaded if he gets up quickly Card Denies chest pain, Denies rapid heart rate, Denies irregular heart rhythm, Denies claudication, Denies leg edema, Denies lightheadedness, Denies palpitations, Denies dyspnea, Denies dyspnea on exertion, Denies orthopnea, Denies paroxysmal nocturnal dyspnea and Denies slow heart rate Resp Denies cough, Denies dyspnea, Denies dyspnea on exertion and Denies snoring GI Reports no additional complaints, Denies hematochezia, Denies change in stool character and Denies dyspepsia Musc Denies abnormal gait, Denies muscle weakness and Denies numbness Neuro Denies abnormal gait, Denies numbness and Denies weakness Endo Denies palpitations Physical Exam Vital Signs: Last Vital Signs Pulse 53 03/02/25 08:58 BP 126/80 03/02/25 08:58 Const General: cooperative, healthy appearing, comfortable and no acute distress Orientation/consciousness: patient oriented x3 Neck Neck: Yes normal visual inspection Resp Effort & Inspection: normal respiratory effort Auscultation: clear to auscultation bilaterally, no rales, no rhonchi and no wheezes Cardio Rate: regular rate Rhythm: regular rhythm Heart sounds: S1 normal heart sound present, S2 normal heart sound present, no gallops, no murmurs and no rubs Neuro General: patient oriented x3 Extrem General: Yes normal to inspection, No no pedal edema and No calf tenderness Psych Appearance: grossly normal Mental Status: mental status grossly normal Speech and movement: Normal speech and movement present Assessment & Plan Assessment & Plan (1) Near syncope: Code(s): R55 - Syncope and collapse Category: Medical Plan: Near syncopal event after having cataract surgery, when he was in upright pos ition prior to leaving. Had documented bradycardia and likely hypotension. Cardiac testing in confirms frequent underlying sinus bradycardia and orthostatic hypotension. This diagnosis was reviewed with him in detail. Instructed on good hydration, adding salt to his diet, recognizing symptoms and sit/lay down if he becomes symptomatic. (2) Sinus bradycardia: Code(s): R00.1 - Bradycardia, unspecified Category: Medical Plan: Holter monitor 12/07/2024 for 3 days shows sinus rhythm with average heart rate 55 beats per minute, frequent sinus bradycardia 70.7% of the time heart rate below 60, rare PACs and PVCs. One brief episode of SVT lasting 21 beats, rate 143 beats per minute. Pacemaker not indicated at this time. Avoid rate slowing agents. (3) Dysautonomia orthostatic hypotension syndrome: Code(s): I95.1 - Orthostatic hypotension Category: Medical Plan: Confirmed on tilt-table test. Discussed with him. (4) Preop cardiovascular exam: Code(s): Z01.810 - Encounter for preprocedural cardiovascular examination Category: Medical Plan: Preop for cataract surgery. Proceed as planned. Recommend good hydration and maintaining supine then sitting position as tolerated, monitoring blood pressure. Assess standing blood pressure prior to his discharge. Plan We discussed the management of orthostatic hypotension, emphasizing hydration and salt intake. I advised the patient to rise slowly from seated positions and to ensure hydration before procedures. We also reviewed the bradycardia findings, noting no immediate need for a pacemaker but the necessity for future monitoring. For near syncope, I recommended avoiding rapid position changes and ensuring hydration, particularly before eye procedures. IV fluids during cataract surgery were suggested to prevent hypotension and bradycardia. Follow- up in six months was planned to reassess the patient's condition. Patient Instructions: - Stay hydrated and consider adding more salt to your diet. - Rise slowly from sitting or lying positions to prevent dizziness. - Ensure you are well-hydrated before any medical procedures. - Follow up in six months for reassessment. Patient was informed and verbally consented to the use of an ambient scribe for clinic note documentation during this visit. Visit time spent on chart review, interview, assessment, orders, documentation. Coding Level of Care Code Est Pt Level 4 (99780) Complex EM visit Add On G2211 Diagnoses Near syncope R55 Sinus bradycardia R00.1 Dysautonomia orthostatic hypotension syndrome I95.1 Preop cardiovascular exam Z01.810 Time Spent (min) 30
== END 2025-03-02 09:33 | disposition home or self-care (01) ==
LOC: HO.HCS 08:46
PROVIDERS: PCP Internal Medicine; Visit Provider Nurse Practitioner Family
DX: R55 Syncope and collapse (principal); R00.1 Bradycardia, unspecified; I95.1 Orthostatic hypotension; Z01.810 Encounter for preprocedural cardiovascular examination
CPT/HCPCS: 99214; G2211

== ENCOUNTER → 2025-03-02 08:46 | Outpatient (BNVA) | payer MEDICARE, SELFPAY | PROVIDERS: PCP Internal Medicine; Visit Provider Nurse Practitioner Family | DX: R00.1 Bradycardia, unspecified (principal); I95.1 Orthostatic hypotension; Z01.810 Encounter for preprocedural cardiovascular examination; Z87.891 Personal history of nicotine dependence | CPT/HCPCS: 99212 ==